=== PATIENT | male | born 1960 | race Caucasian/White ===

== ENCOUNTER 2017-04-28 19:10 | Emergency (ER) | payer MEDICARE, MEDICAID ==
[2017-04-28] MEDS ORDERED: Pantoprazole 40 MG Vial IVPUSH ONE (20:13)
[2017-04-28] MEDS ORDERED: Sodium Chloride 0.9% 1,000 ML IV ONE (20:13)
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
[2017-04-28 21:36] VITALS: BP 133/83
[2017-04-28] MEDS ORDERED: Atropine/Diphenoxylate 0.025-2.5 MG Tab PO ONE (22:08)
== END 2017-04-28 22:20 | disposition home or self-care (01) ==
LOC: DL.ED 19:10
DX: R10.13 Epigastric pain (principal); R19.7 Diarrhea, unspecified; Z88.8 Allergy status to other drugs, medicaments and biological substances; Z79.899 Other long term (current) drug therapy; Z87.891 Personal history of nicotine dependence
CPT/HCPCS: 36415; 74176; 80053; 83605; 84484; 85025; 87040; 96365; 96366; 96375; 99284; C9113; J7030

== ENCOUNTER 2017-05-01 18:36 | Emergency (ER) | payer MEDICARE, MEDICAID ==
[2017-05-01] MEDS ORDERED: Sodium Chloride 0.9% 1,000 ML IV ONE (20:16)
[2017-05-01] MEDS ORDERED: Morphine 2 MG/ML Syringe IVPUSH ONE (20:16)
[2017-05-01] MEDS ORDERED: Ondansetron 4 MG/2 ML SDV IV ONE (20:16)
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
[2017-05-01] MEDS ORDERED: GI Cocktail Oral Solution 30 ML PO ONE (20:24)
[2017-05-01] MEDS ORDERED: Acetaminophen 325 MG Tab PO ONE (22:37)
[2017-05-01 22:39] VITALS: BP 112/65
== END 2017-05-01 23:10 ==
LOC: DL.ED 18:36
DX: K44.9 Diaphragmatic hernia without obstruction or gangrene (principal); K21.0 Gastro-esophageal reflux disease with esophagitis; I10 Essential (primary) hypertension; Z88.8 Allergy status to other drugs, medicaments and biological substances; Z79.899 Other long term (current) drug therapy; Z87.891 Personal history of nicotine dependence
CPT/HCPCS: 36415; 80053; 83605; 85025; 96361; 96374; 96375; 99284; A9270; J2270; J2405; J7030; 99285

== ENCOUNTER 2017-06-06 15:01 | Emergency (ER) | payer MEDICARE, MEDICAID ==
[2017-06-06 15:31] VITALS: BP 151/120
== END 2017-06-06 15:50 | disposition left against medical advice (07) ==
LOC: DL.ED 15:01
DX: Z53.21 Procedure and treatment not carried out due to patient leaving prior to being seen by health care provider (principal)

== ENCOUNTER 2018-08-14 12:45 | Emergency (ER) | payer MEDICARE, MEDICAID ==
[2018-08-14 13:30] VITALS: BP 108/60
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
[2018-08-14] MEDS ORDERED: Ketorolac 30 MG/ML SDV IM ONE (14:02)
[2018-08-14] MEDS ORDERED: Acetaminophen/HYDROcodone 325-10 MG Tab PO ONE (14:03)
--- NOTE | 2018-08-14 15:30 | CR ---
Clinical history: 58-year-old male with clinical "constipation". Interpretation: Multiple phlebolith-like radiopacities in the pelvis. Some stool concentrated in the ascending right colon (remainder of the colon and rectum are clear). Note: A few small scattered air-fluid levels identified in the nondistended small intestine. Significance? No foreign body, abdominal soft tissue mass lesion, pathologic calcifications or signs of free subdiaphragmatic air. Lung bases are clear. CONCLUSION: Minimal stool concentrated (right colon). See comments above regarding small bowel abnormality.
[2018-08-14] MEDS ORDERED: Lactulose Soln 10 GM/15 ML 30 ML UD Cup PO ONE (15:56)
[2018-08-14] MEDS ORDERED: Bisacodyl 5 MG Tab PO ONE (15:56)
== END 2018-08-14 16:10 | disposition home or self-care (01) ==
LOC: DL.ED 12:45
DX: M51.36 Other intervertebral disc degeneration, lumbar region (principal); K59.09 Other constipation; I82.502 Chronic embolism and thrombosis of unspecified deep veins of left lower extremity; Z91.14 Patient's other noncompliance with medication regimen; I10 Essential (primary) hypertension; K21.9 Gastro-esophageal reflux disease without esophagitis; Z88.8 Allergy status to other drugs, medicaments and biological substances; Z79.899 Other long term (current) drug therapy; Z87.891 Personal history of nicotine dependence
CPT/HCPCS: 74021; 96372; 99283; A9270; J1885; J2360

== ENCOUNTER 2018-08-15 19:16 | Emergency (ER) | payer MEDICARE, MEDICAID ==
[2018-08-15 19:29] VITALS: BP 105/68; PULSE 76
[2018-08-15] MEDS ORDERED: Sodium Chloride 0.9% 1,000 ML IV SCH (20:30)
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
[2018-08-15 21:18] LABS: ANION GAP 15.9; CHLORIDE,CL 103 mmol/L (101-111); SODIUM,NA 134 mmol/L (135-145)
[2018-08-15] MEDS ORDERED: Iopamidol 612 MG/ML 100 ML Bottle IVPUSH ONE (21:20)
[2018-08-16] MEDS ORDERED: fentaNYL 100 MCG/2 ML SDV IVPUSH ONE (01:04)
== END 2018-08-16 01:17 ==
LOC: DL.ED 19:16
DX: M86.9 Osteomyelitis, unspecified (principal); I10 Essential (primary) hypertension; Z88.8 Allergy status to other drugs, medicaments and biological substances; Z79.899 Other long term (current) drug therapy; Z79.82 Long term (current) use of aspirin
CPT/HCPCS: 36415; 74177; 80053; 81001; 83605; 85025; 87040; 96365; 96366; 96375; 99285; J3010; J7030; Q9967; 87077; 87186; 99284

== ENCOUNTER 2018-08-24 09:40 | Inpatient (IN) | payer MEDICARE, MEDICAID ==
[2018-08-24] MEDS ORDERED: Magnesium Hydroxide 400 MG/5 ML Susp 30 ML Cup PO PRN (13:47)
[2018-08-24] MEDS ORDERED: Ondansetron 4 MG Tab.DIS PO PRN (13:47)
[2018-08-24] MEDS ORDERED: Polyethylene Glycol 3350 Powder 17 GM Packet PO PRN (13:47)
[2018-08-24] MEDS ORDERED: Docusate Sodium 100 MG Cap PO PRN (13:47)
[2018-08-24] MEDS ORDERED: ceFAZolin/Dextrose,Iso-Osmotic 2 GM/50 ML Duplex Bag IV SCH (14:00)
[2018-08-24] MEDS ORDERED: guaiFENesin 100 MG/5 ML Soln 5 ML UD Cup PO PRN (14:54)
[2018-08-24] MEDS: oxyCODONE 5 MG Tab PO PRN ×2 (15:08→21:04)
[2018-08-24] MEDS: ceFAZolin 2 GM in Premix Bag 1 BAG IV SCH ×2 (15:09→22:07)
[2018-08-24] MEDS: APIXABAN 5 MG PO SCH (16:46)
--- NOTE | 2018-08-24 20:49 | HP ---
CHIEF COMPLAINT: Continued back pain requiring physical therapy and occupational therapy and IV antibiotics for discitis, osteomyelitis of T12 and L1 vertebra. HISTORY OF PRESENTING ILLNESS: Mr. Devante Berkowitz is a 58-year-old male with a medical history significant for hypertension, hyperlipidemia, chronic plantar ulcer with neuropathy, gastroesophageal reflux disease, had protracted hospitalization. He has been sick for the last few months. He was recently admitted to the hospital with left shoulder septic arthritis and underwent debridement and synovectomy on June 28, 2018, and was discharged to [facility] on nafcillin on July 02. His antibiotics were switched to daptomycin on July 08, 2018, when he left the Swing Bed. During that admission, he had MRI scan of the right foot, which was negative for abscess or osteomyelitis. The patient finished his antibiotics on August 06, 2018. He then presented to [facility] with right-sided flank pain on August 16, 2018, with no associated fevers, chills, nausea, vomiting abdominal pain, or diarrhea. CT scan of the abdomen and pelvis done at that time showed evidence of T12 and L1 space narrowing concerning for diskitis, osteomyelitis and was later admitted to [facility]. The patient had an MRI scan of the thoracic spine, which showed evidence of T12-L1 diskitis and evidence of paraspinous soft tissue enhancement consistent with possible psoas muscle abscess. The patient's blood cultures grew methicillin-susceptible Staph aureus, 2/2. The patient was evaluated by Infectious Disease team and has suggested for continuation of IV antibiotics for a total of 8 weeks and he is currently on cefazolin and as he continued to have back pain, he will need physical therapy and occupational therapy, needing admission to Swing Bed. At this time, the patient complains of pain to the back. He grades the pain as 6 to 7/10 in intensity, aggravated on ambulation and movement, relieved partially with pain medication. Pain is throbbing type of pain, nonradiating, not associated with any nausea or vomiting. Denies any chest pain. No shortness of breath. No abdominal pain. The patient denied any history of chest pains on exertion. No history of dyspnea on exertion. No history of orthopnea or paroxysmal nocturnal dyspnea. The patient denied any history of hematemesis, hematochezia, or melenic stools. Normal bowel and bladder habits, otherwise. REVIEW OF SYSTEMS: A complete review of system including skin, ear, nose, and throat, cardiovascular system, respiratory system, gastrointestinal system, genitourinary system, hematology, oncology, neurology, allergy, immunology, constitutional, endocrine were all evaluated and were negative except for the above-said notes. PAST MEDICAL HISTORY: Significant for hypertension, hyperlipidemia, gastroesophageal reflux disease, history of obesity, plantar ulcer on the right foot healed, recent history of shoulder septic arthritis, on prolonged IV antibiotic regimen. PAST SURGICAL HISTORY: Significant for wound debridement and shoulder arthroplasty of the left shoulder, history of umbilical hernia repair, colonoscopy. FAMILY HISTORY: Significant for hypertension in his mother and cancer in 1 of his brothers. SOCIAL HISTORY: The patient had history of smoking tobacco in the past, but quit smoking back in 1999, history of occasional alcohol intake. ALLERGIES: The patient noted to have allergies to vancomycin and gabapentin. HOME MEDICATIONS: Include multivitamin tablet 1 tablet daily; calcium carbonate with vitamin D3, 1 tablet twice a day; Eliquis 5 mg twice a day; vitamin B12, 50 mcg daily; Senokot 2 tablets twice a day; Lyrica 300 mg twice a day; Protonix 40 mg daily; oxycodone 5 mg every 4 hours as needed for pain; lisinopril 40 mg daily; hydrochlorothiazide 12.5 mg daily; Ancef 2 g IV q.8 hourly; aspirin 81 mg daily; Norvasc 5 mg daily; acetaminophen 500 mg every 4 hours as needed for pain. PHYSICAL EXAMINATION: General: The patient is well oriented to time, place, and person. Follows commands spontaneously. Cardiovascular System: S1, S2 heard with normal intensity. No gallops. Respiratory System: Clear to auscultation bilaterally. No wheeze. No crepitations. Abdomen: Soft. Bowel sounds positive. Nontender. No rigidity. No guarding. No rebound tenderness. Extremities: No edema in bilateral lower extremities. Neurology: No gross focal neurological deficit. LABORATORY DATA: Labs as reviewed from [facility]; sodium 137, potassium 4.2, chloride 105, bicarb 23.8, creatinine 0.8, glucose 121, phosphorus 3.4, magnesium 1.5. WBC 5.4, hemoglobin 10.7, hematocrit 33.3, platelet count 314. ASSESSMENT: 1. Diskitis, osteomyelitis involving the T12-L1 vertebrae. 2. Bacteremia with methicillin-susceptible Staph aureus. 3. Hypertension. 4. Hyperlipidemia. 5. Gastroesophageal reflux disease. PLAN: 1. Diskitis and osteomyelitis. The patient is currently on IV antibiotics. He will need total of 8 weeks of IV antibiotics. He has completed 6 weeks of IV antibiotics. He will be followed by Infectious Disease team while in the Swing Bed. We will continue with IV Ancef for now. We will closely follow. 2. Pain. The patient continues to have pain. We will have him on opiate pain medications for good control of the pain. We will have Physical Therapy and Occupational Therapy evaluate and treat the patient. 3. Hypertension. The patient's blood pressure seems to be in acceptable range. The patient's blood pressure will be closely monitored. Continue with current antihypertensive medications. Avoid any hypotensive episodes. 4. Gastroesophageal reflux disease. Continue with proton pump inhibitor. 5. DVT prophylaxis. The patient had history of DVT and the patient is currently on Eliquis, continue the same. 6. Code status. The patient wants to be full code. 7. Reviewed the labs and medications. Reviewed the chart obtained from [facility]. MARTHA /[id number] JULIANNE
[2018-08-24] MEDS: Pregabalin 75 MG Cap PO SCH (21:01)
[2018-08-24] MEDS: Calcium Carbonate/Vitamin D3 1250 MG-200 Unit Tab PO SCH (21:01)
[2018-08-25] MEDS: oxyCODONE 5 MG Tab PO PRN ×4 (03:45→21:17)
[2018-08-25] MEDS: ceFAZolin 2 GM in Premix Bag 1 BAG IV SCH ×3 (05:35→22:08)
[2018-08-25] MEDS: Pantoprazole 40 MG Tab.CR PO SCH (06:08)
[2018-08-25 07:29] LABS: ANION GAP 15.3; CHLORIDE,CL 105 mmol/L (101-111); SODIUM,NA 137 mmol/L (135-145)
[2018-08-25] MEDS: Multivitamins, Therapeutic with Minerals Tab PO SCH (08:41)
[2018-08-25] MEDS: Pregabalin 75 MG Cap PO SCH ×2 (08:41→21:19)
[2018-08-25] MEDS: Calcium Carbonate/Vitamin D3 1250 MG-200 Unit Tab PO SCH ×2 (08:42→21:19)
[2018-08-25] MEDS: Cyanocobalamin (Vitamin B12) 100 MCG Tab PO SCH (08:43)
[2018-08-25] MEDS: amLODIPine 5 MG Tab PO SCH (08:43)
[2018-08-25] MEDS: Hydrochlorothiazide 25 MG Tab PO SCH (08:44)
[2018-08-25] MEDS: Lisinopril 20 MG Tab PO SCH (08:44)
[2018-08-25] MEDS: Aspirin 81 MG Tab.EC PO SCH (08:45)
[2018-08-25] MEDS: APIXABAN 5 MG PO SCH ×2 (08:47→15:41)
[2018-08-25] MEDS ORDERED: Non-Formulary Medication 1 Each PO SCH (09:00)
[2018-08-25] MEDS: Morphine 2 MG/ML Syringe IVPUSH PRN (12:31)
[2018-08-25] MEDS: Sodium Chloride 0.9% 10 ML Syringe FLUSH PRN ×2 (12:32→13:09)
[2018-08-26] MEDS: Pantoprazole 40 MG Tab.CR PO SCH (06:08)
[2018-08-26] MEDS: ceFAZolin 2 GM in Premix Bag 1 BAG IV SCH ×3 (06:08→22:55)
[2018-08-26] MEDS: oxyCODONE 5 MG Tab PO PRN ×4 (06:20→20:22)
[2018-08-26] MEDS: Cyanocobalamin (Vitamin B12) 100 MCG Tab PO SCH (08:23)
[2018-08-26] MEDS: Calcium Carbonate/Vitamin D3 1250 MG-200 Unit Tab PO SCH ×2 (08:24→22:55)
[2018-08-26] MEDS: Hydrochlorothiazide 25 MG Tab PO SCH (08:24)
[2018-08-26] MEDS: Multivitamins, Therapeutic with Minerals Tab PO SCH (08:24)
[2018-08-26] MEDS: Aspirin 81 MG Tab.EC PO SCH (08:25)
[2018-08-26] MEDS: amLODIPine 5 MG Tab PO SCH (08:25)
[2018-08-26] MEDS: Pregabalin 75 MG Cap PO SCH ×2 (08:26→22:55)
[2018-08-26] MEDS: Lisinopril 20 MG Tab PO SCH (08:34)
[2018-08-26] MEDS: APIXABAN 5 MG PO SCH ×2 (10:28→13:29)
[2018-08-26] MEDS: Morphine 2 MG/ML Syringe IVPUSH PRN (13:33)
[2018-08-27] MEDS: oxyCODONE 5 MG Tab PO PRN ×3 (04:16→21:14)
[2018-08-27] MEDS: ceFAZolin 2 GM in Premix Bag 1 BAG IV SCH ×3 (05:44→21:50)
[2018-08-27] MEDS: Pantoprazole 40 MG Tab.CR PO SCH (05:44)
[2018-08-27] MEDS: APIXABAN 5 MG PO SCH ×2 (08:10→13:31)
[2018-08-27] MEDS: Lisinopril 20 MG Tab PO SCH (08:13)
[2018-08-27] MEDS: Multivitamins, Therapeutic with Minerals Tab PO SCH (08:13)
[2018-08-27] MEDS: amLODIPine 5 MG Tab PO SCH (08:15)
[2018-08-27] MEDS: Calcium Carbonate/Vitamin D3 1250 MG-200 Unit Tab PO SCH ×2 (08:17→21:09)
[2018-08-27] MEDS: Pregabalin 75 MG Cap PO SCH ×2 (08:18→21:09)
[2018-08-27] MEDS: Aspirin 81 MG Tab.EC PO SCH (08:19)
[2018-08-27] MEDS: Cyanocobalamin (Vitamin B12) 100 MCG Tab PO SCH (08:19)
[2018-08-27] MEDS: Hydrochlorothiazide 25 MG Tab PO SCH (08:20)
[2018-08-27] MEDS: Sodium Chloride 0.9% 10 ML Syringe FLUSH PRN ×3 (13:29→21:50)
[2018-08-27] MEDS: Morphine 2 MG/ML Syringe IVPUSH PRN (14:02)
[2018-08-28] MEDS: oxyCODONE 5 MG Tab PO PRN ×4 (05:05→21:38)
[2018-08-28] MEDS: Pantoprazole 40 MG Tab.CR PO SCH (05:05)
[2018-08-28] MEDS: ceFAZolin 2 GM in Premix Bag 1 BAG IV SCH ×3 (05:30→21:29)
[2018-08-28] MEDS: Sodium Chloride 0.9% 10 ML Syringe FLUSH PRN ×4 (05:30→22:04)
[2018-08-28] MEDS: APIXABAN 5 MG PO SCH ×2 (09:06→14:07)
[2018-08-28] MEDS: Multivitamins, Therapeutic with Minerals Tab PO SCH (09:07)
[2018-08-28] MEDS: Pregabalin 75 MG Cap PO SCH ×2 (09:07→21:27)
[2018-08-28] MEDS: Aspirin 81 MG Tab.EC PO SCH (09:08)
[2018-08-28] MEDS: Cyanocobalamin (Vitamin B12) 100 MCG Tab PO SCH (09:08)
[2018-08-28] MEDS: amLODIPine 5 MG Tab PO SCH (09:15)
[2018-08-28] MEDS: Calcium Carbonate/Vitamin D3 1250 MG-200 Unit Tab PO SCH ×2 (09:15→21:27)
[2018-08-28] MEDS: Lisinopril 20 MG Tab PO SCH (09:16)
[2018-08-28] MEDS: Hydrochlorothiazide 25 MG Tab PO SCH (09:16)
[2018-08-28] MEDS: Morphine 2 MG/ML Syringe IVPUSH PRN (13:29)
[2018-08-29] MEDS: oxyCODONE 5 MG Tab PO PRN ×4 (03:06→21:12)
[2018-08-29] MEDS: Pantoprazole 40 MG Tab.CR PO SCH (05:27)
[2018-08-29] MEDS: ceFAZolin 2 GM in Premix Bag 1 BAG IV SCH ×3 (05:28→21:46)
[2018-08-29] MEDS: Sodium Chloride 0.9% 10 ML Syringe FLUSH PRN ×3 (05:28→21:45)
[2018-08-29] MEDS: Pregabalin 75 MG Cap PO SCH ×2 (08:49→21:12)
[2018-08-29] MEDS: Aspirin 81 MG Tab.EC PO SCH (08:49)
[2018-08-29] MEDS: Calcium Carbonate/Vitamin D3 1250 MG-200 Unit Tab PO SCH ×2 (08:50→21:12)
[2018-08-29] MEDS: Cyanocobalamin (Vitamin B12) 100 MCG Tab PO SCH (08:50)
[2018-08-29] MEDS: Hydrochlorothiazide 25 MG Tab PO SCH (08:51)
[2018-08-29] MEDS: Multivitamins, Therapeutic with Minerals Tab PO SCH (08:51)
[2018-08-29] MEDS: amLODIPine 5 MG Tab PO SCH (08:58)
[2018-08-29] MEDS: Lisinopril 20 MG Tab PO SCH (08:58)
[2018-08-29] MEDS: APIXABAN 5 MG PO SCH ×2 (08:59→13:05)
[2018-08-29] MEDS: Morphine 2 MG/ML Syringe IVPUSH PRN (13:41)
[2018-08-30] MEDS ORDERED: Pantoprazole 40 MG Tab.CR PO ONE (04:39)
[2018-08-30] MEDS ORDERED: oxyCODONE 5 MG Tab PO ONE (05:41)
[2018-08-30] MEDS: Pantoprazole 40 MG Tab.CR PO SCH (07:23)
[2018-08-30] MEDS: ceFAZolin 2 GM in Premix Bag 1 BAG IV SCH ×3 (07:23→21:44)
[2018-08-30] MEDS: Hydrochlorothiazide 25 MG Tab PO SCH (09:19)
[2018-08-30] MEDS: Multivitamins, Therapeutic with Minerals Tab PO SCH (09:20)
[2018-08-30] MEDS: Cyanocobalamin (Vitamin B12) 100 MCG Tab PO SCH (09:21)
[2018-08-30] MEDS: Aspirin 81 MG Tab.EC PO SCH (09:22)
[2018-08-30] MEDS: Pregabalin 75 MG Cap PO SCH ×2 (09:22→20:39)
[2018-08-30] MEDS: Lisinopril 20 MG Tab PO SCH (09:23)
[2018-08-30] MEDS: amLODIPine 5 MG Tab PO SCH (09:25)
[2018-08-30] MEDS: APIXABAN 5 MG PO SCH ×2 (09:26→13:20)
[2018-08-30] MEDS: Calcium Carbonate/Vitamin D3 1250 MG-200 Unit Tab PO SCH ×2 (09:26→20:39)
[2018-08-30] MEDS: oxyCODONE 5 MG Tab PO PRN ×3 (10:14→20:39)
[2018-08-30] MEDS: Sodium Chloride 0.9% 10 ML Syringe FLUSH PRN (21:42)
[2018-08-31] MEDS: oxyCODONE 5 MG Tab PO PRN ×5 (00:19→20:48)
[2018-08-31] MEDS: Sodium Chloride 0.9% 10 ML Syringe FLUSH PRN ×2 (05:31→15:52)
[2018-08-31] MEDS: ceFAZolin 2 GM in Premix Bag 1 BAG IV SCH ×3 (05:31→22:02)
[2018-08-31] MEDS: Pantoprazole 40 MG Tab.CR PO SCH (05:38)
[2018-08-31] MEDS: Morphine 2 MG/ML Syringe IVPUSH PRN (08:12)
[2018-08-31] MEDS: Pregabalin 75 MG Cap PO SCH ×2 (08:56→20:44)
[2018-08-31] MEDS: Cyanocobalamin (Vitamin B12) 100 MCG Tab PO SCH (08:57)
[2018-08-31] MEDS: Lisinopril 20 MG Tab PO SCH (08:58)
[2018-08-31] MEDS: amLODIPine 5 MG Tab PO SCH (08:59)
[2018-08-31] MEDS: Calcium Carbonate/Vitamin D3 1250 MG-200 Unit Tab PO SCH ×2 (08:59→20:44)
[2018-08-31] MEDS: Hydrochlorothiazide 25 MG Tab PO SCH (09:00)
[2018-08-31] MEDS: Aspirin 81 MG Tab.EC PO SCH (09:00)
[2018-08-31] MEDS: Multivitamins, Therapeutic with Minerals Tab PO SCH (09:01)
[2018-08-31] MEDS: APIXABAN 5 MG PO SCH ×2 (09:02→15:18)
[2018-09-01] MEDS: ceFAZolin 2 GM in Premix Bag 1 BAG IV SCH ×3 (05:52→22:06)
[2018-09-01] MEDS: Pantoprazole 40 MG Tab.CR PO SCH (05:57)
[2018-09-01] MEDS: oxyCODONE 5 MG Tab PO PRN ×4 (06:00→21:06)
[2018-09-01] MEDS: Pregabalin 75 MG Cap PO SCH ×2 (08:23→20:59)
[2018-09-01] MEDS: Cyanocobalamin (Vitamin B12) 100 MCG Tab PO SCH (08:23)
[2018-09-01] MEDS: Lisinopril 20 MG Tab PO SCH (08:23)
[2018-09-01] MEDS: Hydrochlorothiazide 25 MG Tab PO SCH (08:23)
[2018-09-01] MEDS: Calcium Carbonate/Vitamin D3 1250 MG-200 Unit Tab PO SCH ×2 (08:23→21:00)
[2018-09-01] MEDS: Multivitamins, Therapeutic with Minerals Tab PO SCH (08:23)
[2018-09-01] MEDS: Aspirin 81 MG Tab.EC PO SCH (08:23)
[2018-09-01] MEDS: APIXABAN 5 MG PO SCH ×2 (08:24→13:32)
[2018-09-01] MEDS: amLODIPine 5 MG Tab PO SCH (08:24)
[2018-09-01] MEDS: Sodium Chloride 0.9% 10 ML Syringe FLUSH PRN (14:05)
[2018-09-02] MEDS: oxyCODONE 5 MG Tab PO PRN ×4 (04:44→21:41)
[2018-09-02] MEDS: Pantoprazole 40 MG Tab.CR PO SCH (05:33)
[2018-09-02] MEDS: ceFAZolin 2 GM in Premix Bag 1 BAG IV SCH ×3 (05:34→21:42)
[2018-09-02] MEDS: APIXABAN 5 MG PO SCH ×2 (10:12→14:03)
[2018-09-02] MEDS: Hydrochlorothiazide 25 MG Tab PO SCH (10:17)
[2018-09-02] MEDS: Calcium Carbonate/Vitamin D3 1250 MG-200 Unit Tab PO SCH ×2 (10:17→21:37)
[2018-09-02] MEDS: Aspirin 81 MG Tab.EC PO SCH (10:17)
[2018-09-02] MEDS: Pregabalin 75 MG Cap PO SCH ×2 (10:18→21:37)
[2018-09-02] MEDS: amLODIPine 5 MG Tab PO SCH (10:19)
[2018-09-02] MEDS: Lisinopril 20 MG Tab PO SCH (10:20)
[2018-09-02] MEDS: Multivitamins, Therapeutic with Minerals Tab PO SCH (10:21)
[2018-09-02] MEDS: Cyanocobalamin (Vitamin B12) 100 MCG Tab PO SCH (10:21)
[2018-09-02] MEDS: Sodium Chloride 0.9% 10 ML Syringe FLUSH PRN (13:48)
[2018-09-03] MEDS: oxyCODONE 5 MG Tab PO PRN ×4 (04:45→23:59)
[2018-09-03] MEDS: Pantoprazole 40 MG Tab.CR PO SCH (05:40)
[2018-09-03] MEDS: ceFAZolin 2 GM in Premix Bag 1 BAG IV SCH ×3 (05:42→21:23)
[2018-09-03] MEDS: APIXABAN 5 MG PO SCH ×2 (09:23→13:21)
[2018-09-03] MEDS: Calcium Carbonate/Vitamin D3 1250 MG-200 Unit Tab PO SCH ×2 (09:24→21:23)
[2018-09-03] MEDS: Aspirin 81 MG Tab.EC PO SCH (09:24)
[2018-09-03] MEDS: Pregabalin 75 MG Cap PO SCH ×2 (09:24→21:23)
[2018-09-03] MEDS: Cyanocobalamin (Vitamin B12) 100 MCG Tab PO SCH (09:25)
[2018-09-03] MEDS: Multivitamins, Therapeutic with Minerals Tab PO SCH (09:33)
[2018-09-03] MEDS: Lisinopril 20 MG Tab PO SCH (12:17)
[2018-09-03] MEDS: amLODIPine 5 MG Tab PO SCH (12:17)
[2018-09-03] MEDS: Hydrochlorothiazide 25 MG Tab PO SCH (12:17)
[2018-09-03] MEDS: Morphine 2 MG/ML Syringe IVPUSH PRN ×2 (12:28→22:21)
[2018-09-03] MEDS: Sodium Chloride 0.9% 10 ML Syringe FLUSH PRN ×2 (12:36→13:15)
[2018-09-03] MEDS: Acetaminophen 500 MG Tab PO PRN (22:21)
[2018-09-04] MEDS: Acetaminophen 500 MG Tab PO PRN (04:47)
[2018-09-04] MEDS: oxyCODONE 5 MG Tab PO PRN ×4 (04:47→22:00)
[2018-09-04] MEDS: Morphine 2 MG/ML Syringe IVPUSH PRN ×5 (04:47→22:00)
[2018-09-04] MEDS: ceFAZolin 2 GM in Premix Bag 1 BAG IV SCH ×3 (05:00→23:26)
[2018-09-04] MEDS: Pantoprazole 40 MG Tab.CR PO SCH (05:00)
[2018-09-04] MEDS: APIXABAN 5 MG PO SCH ×2 (09:14→13:16)
[2018-09-04] MEDS: Aspirin 81 MG Tab.EC PO SCH (09:15)
[2018-09-04] MEDS: Calcium Carbonate/Vitamin D3 1250 MG-200 Unit Tab PO SCH ×2 (09:15→20:36)
[2018-09-04] MEDS: Multivitamins, Therapeutic with Minerals Tab PO SCH (09:22)
[2018-09-04] MEDS: Pregabalin 75 MG Cap PO SCH ×2 (09:22→20:36)
[2018-09-04] MEDS: Cyanocobalamin (Vitamin B12) 100 MCG Tab PO SCH (09:23)
[2018-09-04] MEDS: amLODIPine 5 MG Tab PO SCH (09:27)
[2018-09-04] MEDS: Hydrochlorothiazide 25 MG Tab PO SCH (09:28)
[2018-09-04] MEDS: Lisinopril 20 MG Tab PO SCH (09:29)
[2018-09-04] MEDS: Sodium Chloride 0.9% 10 ML Syringe FLUSH PRN ×3 (09:39→13:41)
--- NOTE | 2018-09-04 12:49 | PCM.PN ---
- General Info Date of Service: 09/04/18 Admission Dx/Problem (Free Text): Discitis, osteomyelitis of T12-L1 Subjective Update: Patient feels well. He said that his bed is more comfortable after placing an air mattress. Patient said that his back pain is improving with IV antibiotics. Is able to ambulate without problems. He denied any chest pain or shortness of breath, nausea or vomiting, change in bowel habits or urinary habits. He denied any new neurologic symptoms. Functional Status: Reports: Pain Controlled - Review of Systems General: Reports: No Symptoms HEENT: Reports: No Symptoms Pulmonary: Reports: No Symptoms Cardiovascular: Reports: No Symptoms Gastrointestinal: Reports: No Symptoms Genitourinary: Reports: No Symptoms Musculoskeletal: Reports: Back Pain (Improving) Skin: Reports: No Symptoms Neurological: Reports: No Symptoms Psychiatric: Reports: No Symptoms - Patient Data Vitals - Most Recent: Last Vital Signs Temp 36.8 C 09/04/18 08:00 Pulse 72 09/04/18 00:00 Resp 18 09/04/18 08:00 BP 100/66 09/04/18 09:29 Pulse Ox 94 L 09/04/18 08:00 Weight - Most Recent: 114.714 kg I&O - Last 24 Hours: Intake & Output 09/03/18 09/04/18 09/04/18 22:59 06:59 14:59 Intake Total 50 Balance 50 Med Orders - Current: Current Medications Acetaminophen (Tylenol Extra Strength) 500 mg PO Q4HR PRN PRN Reason: Pain (mild 1-3) Last Admin: 09/04/18 04:47 Dose: 500 mg Amlodipine Besylate (Norvasc) 5 mg PO DAILY [facility] Last Admin: 09/04/18 09:27 Dose: 5 mg Aspirin (Halfprin) 81 mg PO DAILY [facility] Last Admin: 09/04/18 09:15 Dose: 81 mg Calcium Carbonate (Calcium Carbonate/Vitamin D 1250 Mg-200 Unit) 1 tab PO BID [facility] Last Admin: 09/04/18 09:15 Dose: 1 tab Cyanocobalamin (Vitamin B12) 50 mcg PO DAILY [facility] Last Admin: 09/04/18 09:23 Dose: 50 mcg Docusate Sodium (Colace) 100 mg PO BID PRN PRN Reason: Constipation Hydrochlorothiazide (Hydrochlorothiazide) 12.5 mg PO DAILY [facility] Last Admin: 09/04/18 09:28 Dose: 12.5 mg Cefazolin Sodium/Dextrose 2 gm (/ Premix) 50 mls @ 100 mls/hr IV Q8HR [facility] Stop: 10/19/18 06:29 Last Admin: 09/04/18 05:00 Dose: 100 mls/hr Lisinopril (Prinivil) 40 mg PO DAILY [facility] Last Admin: 09/04/18 09:29 Dose: 40 mg Magnesium Hydroxide (Milk Of Magnesia) 30 ml PO Q12H PRN PRN Reason: Constipation Morphine Sulfate (Morphine) 2 mg IVPUSH Q2H PRN PRN Reason: Pain (severe 7-10) Last Admin: 09/04/18 09:40 Dose: 2 mg Multivitamins/Minerals (Vitamins And Minerals) 1 tab PO DAILY [facility] Last Admin: 09/04/18 09:22 Dose: 1 tab Apixaban [Eliquis] 5 Mg- Non-Formulary Medication 5 mg PO 0800,1400 [facility] Last Admin: 09/04/18 09:14 Dose: 5 mg Ondansetron HCl (Zofran Odt) 4 mg PO Q4H PRN PRN Reason: nausea, able to take PO Oxycodone HCl (Oxycodone) 5 mg PO Q4HR PRN PRN Reason: Pain (moderate 4-6) Last Admin: 09/04/18 09:20 Dose: 5 mg Pantoprazole Sodium (Protonix) 40 mg PO ACBRK [facility] Last Admin: 09/04/18 05:00 Dose: 40 mg Polyethylene Glycol (Miralax) 17 gm PO DAILY PRN PRN Reason: Constipation Pregabalin (Lyrica) 300 mg PO BID [facility] Last Admin: 09/04/18 09:22 Dose: 300 mg Senna/Docusate Sodium (Senna Plus) 2 tab PO BID [facility] Last Admin: 09/04/18 09:22 Dose: 2 tab Sodium Chloride (Saline Flush) 10 ml FLUSH ASDIRECTED PRN PRN Reason: Keep Vein Open Last Admin: 09/04/18 09:39 Dose: 10 ml Discontinued Medications Non-Formulary Medication (Nf Drug) each PO DAILY [facility] Oxycodone HCl (Oxycodone) 5 mg PO .STK-MED ONE Stop: 08/30/18 05:42 Pantoprazole Sodium (Protonix) 40 mg PO .STK-MED ONE Stop: 08/30/18 04:40 - Problem List Review Problem List Initiated/Reviewed/Updated: Yes - Plan Plan:: Mr. Devante Berkowitz is a 58-year-old male with past medical history significant for hypertension, hyperlipidemia, chronic plantar ulcer with neuropathy, GERD, recent admission for left shoulder septic arthritis status post IV antibiotics who later presented again to [facility] with back pain with MRI showing evidence of T12-L1 discitis and evidence of paraspinous soft tissue enhancement consistent with possible psoas muscle abscess, blood cultures positive for MSSA. His here for IV antibiotics and physical therapy. Discitis Continue current IV antibiotics Patient will follow up with ID Pain treatment as ordered Hypertension Continue current management GERD continue PPI DVT prophylaxis Hari
[2018-09-05] MEDS: Morphine 2 MG/ML Syringe IVPUSH PRN ×3 (03:12→22:49)
[2018-09-05] MEDS: Pantoprazole 40 MG Tab.CR PO SCH (05:52)
[2018-09-05] MEDS: oxyCODONE 5 MG Tab PO PRN ×3 (05:52→20:44)
[2018-09-05] MEDS: ceFAZolin 2 GM in Premix Bag 1 BAG IV SCH ×3 (05:54→22:23)
[2018-09-05] MEDS: Sodium Chloride 0.9% 10 ML Syringe FLUSH PRN ×3 (05:54→13:54)
[2018-09-05] MEDS: APIXABAN 5 MG PO SCH ×2 (08:29→13:08)
[2018-09-05] MEDS: Pregabalin 75 MG Cap PO SCH ×2 (08:30→20:45)
[2018-09-05] MEDS: Calcium Carbonate/Vitamin D3 1250 MG-200 Unit Tab PO SCH ×2 (08:30→20:43)
[2018-09-05] MEDS: Cyanocobalamin (Vitamin B12) 100 MCG Tab PO SCH (08:31)
[2018-09-05] MEDS: Aspirin 81 MG Tab.EC PO SCH (08:31)
[2018-09-05] MEDS: Multivitamins, Therapeutic with Minerals Tab PO SCH (08:31)
[2018-09-05] MEDS: Hydrochlorothiazide 25 MG Tab PO SCH (08:37)
[2018-09-05] MEDS: amLODIPine 5 MG Tab PO SCH (08:38)
[2018-09-05] MEDS: Lisinopril 20 MG Tab PO SCH (08:38)
[2018-09-06] MEDS: Pantoprazole 40 MG Tab.CR PO SCH (05:57)
[2018-09-06] MEDS: oxyCODONE 5 MG Tab PO PRN ×2 (05:57→22:54)
[2018-09-06] MEDS: ceFAZolin 2 GM in Premix Bag 1 BAG IV SCH ×3 (05:58→22:03)
[2018-09-06] MEDS: Pregabalin 75 MG Cap PO SCH ×2 (08:58→20:57)
[2018-09-06] MEDS: Calcium Carbonate/Vitamin D3 1250 MG-200 Unit Tab PO SCH ×2 (08:59→20:56)
[2018-09-06] MEDS: Multivitamins, Therapeutic with Minerals Tab PO SCH (08:59)
[2018-09-06] MEDS: Aspirin 81 MG Tab.EC PO SCH (09:00)
[2018-09-06] MEDS: Cyanocobalamin (Vitamin B12) 100 MCG Tab PO SCH (09:00)
[2018-09-06] MEDS: APIXABAN 5 MG PO SCH ×2 (09:00→12:59)
[2018-09-06] MEDS: Lisinopril 20 MG Tab PO SCH (09:06)
[2018-09-06] MEDS: Hydrochlorothiazide 25 MG Tab PO SCH (09:07)
[2018-09-06] MEDS: amLODIPine 5 MG Tab PO SCH (09:07)
[2018-09-06] MEDS: Morphine 2 MG/ML Syringe IVPUSH PRN (09:10)
[2018-09-06] MEDS: Sodium Chloride 0.9% 10 ML Syringe FLUSH PRN ×2 (09:10→13:40)
[2018-09-07] MEDS: Morphine 2 MG/ML Syringe IVPUSH PRN (00:21)
[2018-09-07] MEDS: oxyCODONE 5 MG Tab PO PRN (04:56)
[2018-09-07] MEDS: Pantoprazole 40 MG Tab.CR PO SCH (05:45)
[2018-09-07] MEDS: ceFAZolin 2 GM in Premix Bag 1 BAG IV SCH ×3 (05:46→22:16)
[2018-09-07] MEDS: APIXABAN 5 MG PO SCH ×2 (08:23→13:13)
[2018-09-07] MEDS: Pregabalin 75 MG Cap PO SCH ×2 (08:24→22:15)
[2018-09-07] MEDS: amLODIPine 5 MG Tab PO SCH (08:25)
[2018-09-07] MEDS: Hydrochlorothiazide 25 MG Tab PO SCH (08:25)
[2018-09-07] MEDS: Cyanocobalamin (Vitamin B12) 100 MCG Tab PO SCH (08:25)
[2018-09-07] MEDS: Lisinopril 20 MG Tab PO SCH (08:26)
[2018-09-07] MEDS: Calcium Carbonate/Vitamin D3 1250 MG-200 Unit Tab PO SCH ×2 (08:26→22:15)
[2018-09-07] MEDS: Aspirin 81 MG Tab.EC PO SCH (08:26)
[2018-09-07] MEDS: Multivitamins, Therapeutic with Minerals Tab PO SCH (08:26)
[2018-09-07] MEDS: Sodium Chloride 0.9% 10 ML Syringe FLUSH PRN (13:51)
[2018-09-08] MEDS: Morphine 2 MG/ML Syringe IVPUSH PRN (00:22)
[2018-09-08] MEDS: oxyCODONE 5 MG Tab PO PRN ×3 (05:39→22:19)
[2018-09-08] MEDS: ceFAZolin 2 GM in Premix Bag 1 BAG IV SCH ×3 (05:39→22:19)
[2018-09-08] MEDS: Pantoprazole 40 MG Tab.CR PO SCH (05:39)
[2018-09-08] MEDS: APIXABAN 5 MG PO SCH ×2 (09:12→13:01)
[2018-09-08] MEDS: Pregabalin 75 MG Cap PO SCH ×2 (09:12→22:18)
[2018-09-08] MEDS: Hydrochlorothiazide 25 MG Tab PO SCH (09:12)
[2018-09-08] MEDS: Lisinopril 20 MG Tab PO SCH (09:13)
[2018-09-08] MEDS: Cyanocobalamin (Vitamin B12) 100 MCG Tab PO SCH (09:14)
[2018-09-08] MEDS: Multivitamins, Therapeutic with Minerals Tab PO SCH (09:14)
[2018-09-08] MEDS: amLODIPine 5 MG Tab PO SCH (09:15)
[2018-09-08] MEDS: Calcium Carbonate/Vitamin D3 1250 MG-200 Unit Tab PO SCH ×2 (09:15→22:18)
[2018-09-08] MEDS: Aspirin 81 MG Tab.EC PO SCH (09:15)
--- NOTE | 2018-09-08 10:08 | PCM.PN ---
- General Info Date of Service: 09/08/18 Admission Dx/Problem (Free Text): Discitis, osteomyelitis of T12-L1 Subjective Update: Patient feels well. He continues to complain of back pain related to bed being uncomfortable. He is moving his bowels okay. No issues with urination. No issues with respiration. He denied any other complaints. - Review of Systems General: Reports: No Symptoms Pulmonary: Reports: No Symptoms Cardiovascular: Reports: No Symptoms Gastrointestinal: Reports: No Symptoms Genitourinary: Reports: No Symptoms Musculoskeletal: Reports: Back Pain - Patient Data Vitals - Most Recent: Last Vital Signs Temp 37.1 C 09/08/18 08:00 Pulse 66 09/08/18 08:00 Resp 18 09/08/18 08:00 BP 117/58 L 09/08/18 09:15 Pulse Ox 95 09/08/18 08:00 Weight - Most Recent: 114.714 kg I&O - Last 24 Hours: Intake & Output 09/07/18 09/08/18 09/08/18 22:59 06:59 14:59 Intake Total 50 103 Balance 50 103 Med Orders - Current: Current Medications Acetaminophen (Tylenol Extra Strength) 500 mg PO Q4HR PRN PRN Reason: Pain (mild 1-3) Last Admin: 09/04/18 04:47 Dose: 500 mg Amlodipine Besylate (Norvasc) 5 mg PO DAILY [facility] Last Admin: 09/08/18 09:15 Dose: 5 mg Aspirin (Halfprin) 81 mg PO DAILY [facility] Last Admin: 09/08/18 09:15 Dose: 81 mg Calcium Carbonate (Calcium Carbonate/Vitamin D 1250 Mg-200 Unit) 1 tab PO BID [facility] Last Admin: 09/08/18 09:15 Dose: 1 tab Cyanocobalamin (Vitamin B12) 50 mcg PO DAILY [facility] Last Admin: 09/08/18 09:14 Dose: 50 mcg Docusate Sodium (Colace) 100 mg PO BID PRN PRN Reason: Constipation Hydrochlorothiazide (Hydrochlorothiazide) 12.5 mg PO DAILY [facility] Last Admin: 09/08/18 09:12 Dose: 12.5 mg Cefazolin Sodium/Dextrose 2 gm (/ Premix) 50 mls @ 100 mls/hr IV Q8HR [facility] Stop: 10/19/18 06:29 Last Admin: 09/08/18 05:39 Dose: 100 mls/hr Lisinopril (Prinivil) 40 mg PO DAILY [facility] Last Admin: 09/08/18 09:13 Dose: 40 mg Magnesium Hydroxide (Milk Of Magnesia) 30 ml PO Q12H PRN PRN Reason: Constipation Morphine Sulfate (Morphine) 2 mg IVPUSH Q2H PRN PRN Reason: Pain (severe 7-10) Last Admin: 09/08/18 00:22 Dose: 2 mg Multivitamins/Minerals (Vitamins And Minerals) 1 tab PO DAILY [facility] Last Admin: 09/08/18 09:14 Dose: 1 tab Apixaban [Eliquis] 5 Mg- Non-Formulary Medication 5 mg PO 0800,1400 [facility] Last Admin: 09/08/18 09:12 Dose: 5 mg Ondansetron HCl (Zofran Odt) 4 mg PO Q4H PRN PRN Reason: nausea, able to take PO Oxycodone HCl (Oxycodone) 5 mg PO Q4HR PRN PRN Reason: Pain (moderate 4-6) Last Admin: 09/08/18 05:39 Dose: 5 mg Pantoprazole Sodium (Protonix) 40 mg PO ACBRK [facility] Last Admin: 09/08/18 05:39 Dose: 40 mg Polyethylene Glycol (Miralax) 17 gm PO DAILY PRN PRN Reason: Constipation Pregabalin (Lyrica) 300 mg PO BID [facility] Last Admin: 09/08/18 09:12 Dose: 300 mg Senna/Docusate Sodium (Senna Plus) 2 tab PO BID [facility] Last Admin: 09/08/18 09:13 Dose: 2 tab Sodium Chloride (Saline Flush) 10 ml FLUSH ASDIRECTED PRN PRN Reason: Keep Vein Open Last Admin: 09/07/18 13:51 Dose: 10 ml Discontinued Medications Non-Formulary Medication (Nf Drug) each PO DAILY [facility] Oxycodone HCl (Oxycodone) 5 mg PO .STK-MED ONE Stop: 08/30/18 05:42 Pantoprazole Sodium (Protonix) 40 mg PO .STK-MED ONE Stop: 08/30/18 04:40 - Exam General: Alert, Oriented Lungs: Clear to Auscultation, Normal Respiratory Effort Cardiovascular: Regular Rate, Regular Rhythm GI/Abdominal Exam: Normal Bowel Sounds, Soft, No Distention Skin: Warm, Dry, Intact Neurological: No New Focal Deficit Psy/Mental Status: Alert, Normal Affect, Normal Mood - Problem List Review Problem List Initiated/Reviewed/Updated: Yes - My Orders Last 24 Hours: My Active Orders 09/14/18 06:00 ALANINE AMINOTRANSFERASE,ALT [CHEM] Routine CBC WITH AUTO DIFF [HEME] Routine CREATININE W/GFR [CHEM] Routine CRP [C-REACTIVE PROTEIN] [CHEM] Routine ESR [SEDIMENTATION RATE MANUAL] [HEME] Routine - Plan Plan:: Mr. Devante Berkowitz is a 58-year-old male with past medical history significant for hypertension, hyperlipidemia, chronic plantar ulcer with neuropathy, GERD, recent admission for left shoulder septic arthritis status post IV antibiotics who later presented again to [facility] with back pain with MRI showing evidence of T12-L1 discitis and evidence of paraspinous soft tissue enhancement consistent with possible psoas muscle abscess, blood cultures positive for MSSA. His here for IV antibiotics and physical therapy. Discitis Continue current IV antibiotics Patient will follow up with ID Pain treatment as ordered Hypertension Continue current management GERD continue PPI DVT prophylaxis Hari
[2018-09-09] MEDS: Morphine 2 MG/ML Syringe IVPUSH PRN ×2 (00:22→22:59)
[2018-09-09] MEDS: ceFAZolin 2 GM in Premix Bag 1 BAG IV SCH ×3 (05:55→21:30)
[2018-09-09] MEDS: Pantoprazole 40 MG Tab.CR PO SCH (05:55)
[2018-09-09] MEDS: oxyCODONE 5 MG Tab PO PRN ×4 (06:00→21:02)
[2018-09-09] MEDS: Pregabalin 75 MG Cap PO SCH ×2 (08:46→21:01)
[2018-09-09] MEDS: Multivitamins, Therapeutic with Minerals Tab PO SCH (08:47)
[2018-09-09] MEDS: Calcium Carbonate/Vitamin D3 1250 MG-200 Unit Tab PO SCH ×2 (08:47→21:01)
[2018-09-09] MEDS: Hydrochlorothiazide 25 MG Tab PO SCH (08:48)
[2018-09-09] MEDS: Aspirin 81 MG Tab.EC PO SCH (08:48)
[2018-09-09] MEDS: amLODIPine 5 MG Tab PO SCH (08:49)
[2018-09-09] MEDS: Lisinopril 20 MG Tab PO SCH (08:49)
[2018-09-09] MEDS: Cyanocobalamin (Vitamin B12) 100 MCG Tab PO SCH (08:49)
[2018-09-09] MEDS: APIXABAN 5 MG PO SCH ×2 (08:50→13:43)
[2018-09-09] MEDS: Sodium Chloride 0.9% 10 ML Syringe FLUSH PRN (13:41)
[2018-09-09] MEDS: Zolpidem 5 MG Tab PO PRN (22:11)
[2018-09-10] MEDS: Pantoprazole 40 MG Tab.CR PO SCH (05:45)
[2018-09-10] MEDS: ceFAZolin 2 GM in Premix Bag 1 BAG IV SCH ×3 (05:45→21:40)
[2018-09-10] MEDS: Lisinopril 20 MG Tab PO SCH (09:37)
[2018-09-10] MEDS: Pregabalin 75 MG Cap PO SCH ×2 (09:38→21:03)
[2018-09-10] MEDS: APIXABAN 5 MG PO SCH ×2 (09:38→13:40)
[2018-09-10] MEDS: Calcium Carbonate/Vitamin D3 1250 MG-200 Unit Tab PO SCH ×2 (09:38→21:02)
[2018-09-10] MEDS: Cyanocobalamin (Vitamin B12) 100 MCG Tab PO SCH (09:39)
[2018-09-10] MEDS: amLODIPine 5 MG Tab PO SCH (09:39)
[2018-09-10] MEDS: Hydrochlorothiazide 25 MG Tab PO SCH (09:40)
[2018-09-10] MEDS: Multivitamins, Therapeutic with Minerals Tab PO SCH (09:40)
[2018-09-10] MEDS: Aspirin 81 MG Tab.EC PO SCH (09:40)
[2018-09-10] MEDS: Sodium Chloride 0.9% 10 ML Syringe FLUSH PRN (13:04)
[2018-09-10] MEDS: oxyCODONE 5 MG Tab PO PRN (21:06)
[2018-09-10] MEDS: Morphine 2 MG/ML Syringe IVPUSH PRN (22:03)
[2018-09-11] MEDS: Zolpidem 5 MG Tab PO PRN (00:42)
[2018-09-11] MEDS: Acetaminophen 500 MG Tab PO PRN (00:42)
[2018-09-11] MEDS: oxyCODONE 5 MG Tab PO PRN (02:09)
[2018-09-11] MEDS: Morphine 2 MG/ML Syringe IVPUSH PRN (03:39)
[2018-09-11] MEDS: Pantoprazole 40 MG Tab.CR PO SCH (05:46)
[2018-09-11] MEDS: ceFAZolin 2 GM in Premix Bag 1 BAG IV SCH ×3 (05:47→21:23)
[2018-09-11] MEDS: APIXABAN 5 MG PO SCH ×2 (09:00→13:27)
[2018-09-11] MEDS: Lisinopril 20 MG Tab PO SCH (09:00)
[2018-09-11] MEDS: Pregabalin 75 MG Cap PO SCH ×2 (09:00→21:23)
[2018-09-11] MEDS: Aspirin 81 MG Tab.EC PO SCH (09:02)
[2018-09-11] MEDS: Multivitamins, Therapeutic with Minerals Tab PO SCH (09:02)
[2018-09-11] MEDS: Calcium Carbonate/Vitamin D3 1250 MG-200 Unit Tab PO SCH ×2 (09:02→21:23)
[2018-09-11] MEDS: Hydrochlorothiazide 25 MG Tab PO SCH (09:02)
[2018-09-11] MEDS: Cyanocobalamin (Vitamin B12) 100 MCG Tab PO SCH (09:02)
[2018-09-11] MEDS: amLODIPine 5 MG Tab PO SCH (09:04)
[2018-09-12] MEDS: oxyCODONE 5 MG Tab PO PRN ×4 (01:18→21:49)
[2018-09-12] MEDS: Pantoprazole 40 MG Tab.CR PO SCH (05:42)
[2018-09-12] MEDS: ceFAZolin 2 GM in Premix Bag 1 BAG IV SCH ×3 (05:43→21:48)
[2018-09-12] MEDS: Pregabalin 75 MG Cap PO SCH ×2 (08:31→21:47)
[2018-09-12] MEDS: Calcium Carbonate/Vitamin D3 1250 MG-200 Unit Tab PO SCH ×2 (08:31→21:48)
[2018-09-12] MEDS: Hydrochlorothiazide 25 MG Tab PO SCH (08:32)
[2018-09-12] MEDS: amLODIPine 5 MG Tab PO SCH (08:32)
[2018-09-12] MEDS: Multivitamins, Therapeutic with Minerals Tab PO SCH (08:32)
[2018-09-12] MEDS: Lisinopril 20 MG Tab PO SCH (08:33)
[2018-09-12] MEDS: Cyanocobalamin (Vitamin B12) 100 MCG Tab PO SCH (08:33)
[2018-09-12] MEDS: Aspirin 81 MG Tab.EC PO SCH (08:34)
[2018-09-12] MEDS: APIXABAN 5 MG PO SCH ×2 (08:34→13:10)
[2018-09-12] MEDS: Sodium Chloride 0.9% 10 ML Syringe FLUSH PRN (13:04)
[2018-09-12] MEDS: Morphine 2 MG/ML Syringe IVPUSH PRN (23:33)
[2018-09-12] MEDS: Zolpidem 5 MG Tab PO PRN (23:33)
[2018-09-13] MEDS: ceFAZolin 2 GM in Premix Bag 1 BAG IV SCH ×3 (05:26→21:55)
[2018-09-13] MEDS: Pantoprazole 40 MG Tab.CR PO SCH (05:27)
[2018-09-13] MEDS: Morphine 2 MG/ML Syringe IVPUSH PRN (06:19)
[2018-09-13] MEDS: amLODIPine 5 MG Tab PO SCH (08:30)
[2018-09-13] MEDS: APIXABAN 5 MG PO SCH ×2 (08:30→13:34)
[2018-09-13] MEDS: oxyCODONE 5 MG Tab PO PRN ×3 (08:31→22:06)
[2018-09-13] MEDS: Cyanocobalamin (Vitamin B12) 100 MCG Tab PO SCH (08:32)
[2018-09-13] MEDS: Pregabalin 75 MG Cap PO SCH ×2 (08:32→22:05)
[2018-09-13] MEDS: Lisinopril 20 MG Tab PO SCH (08:32)
[2018-09-13] MEDS: Aspirin 81 MG Tab.EC PO SCH (08:33)
[2018-09-13] MEDS: Hydrochlorothiazide 25 MG Tab PO SCH (08:33)
[2018-09-13] MEDS: Calcium Carbonate/Vitamin D3 1250 MG-200 Unit Tab PO SCH ×2 (08:33→22:05)
[2018-09-13] MEDS: Multivitamins, Therapeutic with Minerals Tab PO SCH (08:33)
[2018-09-13] MEDS: Sodium Chloride 0.9% 10 ML Syringe FLUSH PRN ×2 (13:12→21:54)
[2018-09-14] MEDS: oxyCODONE 5 MG Tab PO PRN ×5 (04:07→23:45)
[2018-09-14] MEDS: Sodium Chloride 0.9% 10 ML Syringe FLUSH PRN ×2 (05:39→15:25)
[2018-09-14] MEDS: ceFAZolin 2 GM in Premix Bag 1 BAG IV SCH ×2 (05:41→14:22)
[2018-09-14] MEDS: Pantoprazole 40 MG Tab.CR PO SCH (05:44)
[2018-09-14] MEDS: Morphine 2 MG/ML Syringe IVPUSH PRN (06:14)
[2018-09-14 07:21] LABS: ANION GAP 13.2; CHLORIDE,CL 108 mmol/L (101-111); SODIUM,NA 137 mmol/L (135-145)
[2018-09-14] MEDS: Cyanocobalamin (Vitamin B12) 100 MCG Tab PO SCH (08:07)
[2018-09-14] MEDS: Aspirin 81 MG Tab.EC PO SCH (08:07)
[2018-09-14] MEDS: amLODIPine 5 MG Tab PO SCH (08:07)
[2018-09-14] MEDS: Multivitamins, Therapeutic with Minerals Tab PO SCH (08:07)
[2018-09-14] MEDS: Pregabalin 75 MG Cap PO SCH ×2 (08:07→20:41)
[2018-09-14] MEDS: Calcium Carbonate/Vitamin D3 1250 MG-200 Unit Tab PO SCH ×2 (08:08→20:41)
[2018-09-14] MEDS: APIXABAN 5 MG PO SCH ×2 (08:08→14:30)
[2018-09-14] MEDS: Lisinopril 20 MG Tab PO SCH (08:08)
[2018-09-14] MEDS: Hydrochlorothiazide 25 MG Tab PO SCH (08:08)
[2018-09-14] MEDS: NAFCILLIN IV SCH (15:25)
[2018-09-14] MEDS: SODIUM CHLORIDE 0.9% IV SCH (15:25)
--- NOTE | 2018-09-14 17:35 | PCM.PN ---
- General Info Date of Service: 09/14/18 Admission Dx/Problem (Free Text): Discitis, osteomyelitis of T12-L1 Subjective Update: Patient feels well. He continues to complain of back pain. mostly uncomfortable during the night in bed. no cp, no spb No issues with urination. had visit with ID today Functional Status: Reports: Pain Controlled, Tolerating Diet - Review of Systems General: Denies: Fever Pulmonary: Denies: Shortness of Breath Cardiovascular: Denies: Chest Pain Gastrointestinal: Denies: Abdominal Pain - Patient Data Vitals - Most Recent: Last Vital Signs Temp 36.4 C 09/14/18 08:26 Pulse 78 09/13/18 22:14 Resp 20 09/14/18 08:26 BP 127/69 09/14/18 08:26 Pulse Ox 96 09/14/18 08:26 Weight - Most Recent: 115.439 kg I&O - Last 24 Hours: Intake & Output 09/14/18 09/14/18 09/14/18 06:59 14:59 22:59 Intake Total 405 780 Balance 405 780 Lab Results Last 24 Hours: Laboratory Results - last 24 hr 09/14/18 09/14/18 09/14/18 Range/Units 06:26 06:26 06:26 WBC 4.2 L (5.0-10.0) 10^3/uL RBC 3.78 L (4.6-6.2) 10^6/uL Hgb 11.1 L (14.0-18.0) g/dL Hct 33.5 L (40.0-54.0) % MCV 88.6 (80-100) fL MCH 29.4 (27.0-34.0) pg MCHC 33.1 (33.0-35.0) g/dL Plt Count 145 L (150-450) 10^3/uL Neut % (Auto) 36.8 L (42.2-75.2) % Lymph % (Auto) 44.2 (20.5-50.1) % Hoke % (Auto) 13.7 H (2-8) % Eos % (Auto) 4.3 H (1.0-3.0) % Baso % (Auto) 1.0 (0.0-1.0) % ESR 11 (0-15) mm/hr Sodium (135-145) mmol/L Potassium (3.6-5.0) mmol/L Chloride (101-111) mmol/L Carbon Dioxide (21.0-31.0) mmol/L Anion Gap BUN (7-18) mg/dL Creatinine TNP Est Cr Clr Drug Dosing TNP Estimated GFR (MDRD) TNP Glucose (74-105) mg/dL Calcium (8.4-10.2) mg/dl ALT 5 L (10-60) IU/L C-Reactive Protein 1.0 (0.0-1.3) mg/dL 09/14/18 Range/Units 06:26 WBC (5.0-10.0) 10^3/uL RBC (4.6-6.2) 10^6/uL Hgb (14.0-18.0) g/dL Hct (40.0-54.0) % MCV (80-100) fL MCH (27.0-34.0) pg MCHC (33.0-35.0) g/dL Plt Count (150-450) 10^3/uL Neut % (Auto) (42.2-75.2) % Lymph % (Auto) (20.5-50.1) % Hoke % (Auto) (2-8) % Eos % (Auto) (1.0-3.0) % Baso % (Auto) (0.0-1.0) % ESR (0-15) mm/hr Sodium 137 (135-145) mmol/L Potassium 4.2 (3.6-5.0) mmol/L Chloride 108 (101-111) mmol/L Carbon Dioxide 20.0 L (21.0-31.0) mmol/L Anion Gap 13.2 BUN 24 H (7-18) mg/dL Creatinine 0.7 Est Cr Clr Drug Dosing 130.48 Estimated GFR (MDRD) > 60 Glucose 96 (74-105) mg/dL Calcium 8.7 (8.4-10.2) mg/dl ALT (10-60) IU/L C-Reactive Protein (0.0-1.3) mg/dL Med Orders - Current: Current Medications Acetaminophen (Tylenol Extra Strength) 500 mg PO Q4HR PRN PRN Reason: Pain (mild 1-3) Last Admin: 09/11/18 00:42 Dose: 500 mg Amlodipine Besylate (Norvasc) 5 mg PO DAILY [facility] Last Admin: 09/14/18 08:07 Dose: 5 mg Aspirin (Halfprin) 81 mg PO DAILY [facility] Last Admin: 09/14/18 08:07 Dose: 81 mg Calcium Carbonate (Calcium Carbonate/Vitamin D 1250 Mg-200 Unit) 1 tab PO BID [facility] Last Admin: 09/14/18 08:08 Dose: 1 tab Cyanocobalamin (Vitamin B12) 50 mcg PO DAILY [facility] Last Admin: 09/14/18 08:07 Dose: 50 mcg Docusate Sodium (Colace) 100 mg PO BID PRN PRN Reason: Constipation Hydrochlorothiazide (Hydrochlorothiazide) 12.5 mg PO DAILY [facility] Last Admin: 09/14/18 08:08 Dose: 12.5 mg Nafcillin Sodium 12 gm/ Sodium (Chloride) 250 mls @ 10.417 mls/hr IV Q24H [facility] Stop: 10/12/18 14:59 Last Admin: 09/14/18 15:25 Dose: 10.417 mls/hr Lisinopril (Prinivil) 40 mg PO DAILY [facility] Last Admin: 09/14/18 08:08 Dose: 40 mg Magnesium Hydroxide (Milk Of Magnesia) 30 ml PO Q12H PRN PRN Reason: Constipation Morphine Sulfate (Morphine) 2 mg IVPUSH Q2H PRN PRN Reason: Pain (severe 7-10) Last Admin: 09/14/18 06:14 Dose: 2 mg Multivitamins/Minerals (Vitamins And Minerals) 1 tab PO DAILY [facility] Last Admin: 09/14/18 08:07 Dose: 1 tab Apixaban [Eliquis] 5 Mg- Non-Formulary Medication 5 mg PO 0800,1400 [facility] Last Admin: 09/14/18 14:30 Dose: 5 mg Ondansetron HCl (Zofran Odt) 4 mg PO Q4H PRN PRN Reason: nausea, able to take PO Oxycodone HCl (Oxycodone) 5 mg PO Q4HR PRN PRN Reason: Pain (moderate 4-6) Last Admin: 09/14/18 14:29 Dose: 5 mg Pantoprazole Sodium (Protonix) 40 mg PO ACBRK [facility] Last Admin: 09/14/18 05:44 Dose: 40 mg Polyethylene Glycol (Miralax) 17 gm PO DAILY PRN PRN Reason: Constipation Pregabalin (Lyrica) 300 mg PO BID [facility] Last Admin: 09/14/18 08:07 Dose: 300 mg Senna/Docusate Sodium (Senna Plus) 2 tab PO BID [facility] Last Admin: 09/14/18 08:07 Dose: 2 tab Sodium Chloride (Saline Flush) 10 ml FLUSH ASDIRECTED PRN PRN Reason: Keep Vein Open Last Admin: 09/14/18 15:25 Dose: 10 ml Zolpidem Tartrate (Ambien) 5 mg PO BEDTIME PRN PRN Reason: Insomnia Last Admin: 09/12/18 23:33 Dose: 5 mg Discontinued Medications Cefazolin Sodium/Dextrose 2 gm (/ Premix) 50 mls @ 100 mls/hr IV Q8HR [facility] Stop: 10/12/18 14:01 Last Admin: 09/14/18 14:22 Dose: Not Given Non-Formulary Medication (Nf Drug) each PO DAILY [facility] Oxycodone HCl (Oxycodone) 5 mg PO .STK-MED ONE Stop: 08/30/18 05:42 Pantoprazole Sodium (Protonix) 40 mg PO .STK-MED ONE Stop: 08/30/18 04:40 - Exam Quality Assessment: Supplemental Oxygen General: Alert, Oriented Neck: Supple Lungs: Clear to Auscultation, Normal Respiratory Effort Cardiovascular: Regular Rate, Regular Rhythm GI/Abdominal Exam: Normal Bowel Sounds, Soft, Other (obese) Extremities: No Pedal Edema - Problem List & Annotations (1) Osteomyelitis SNOMED Code(s): 35385617 Code(s): M86.9 - OSTEOMYELITIS, UNSPECIFIED Status: Acute Current Visit: No Qualifiers: Osteomyelitis type: unspecified type Osteomyelitis location: other site Qualified Code(s): M86.9 - Osteomyelitis, unspecified - Problem List Review Problem List Initiated/Reviewed/Updated: Yes - My Orders Last 24 Hours: My Active Orders 09/14/18 15:00 Nafcillin 12 gm Sodium Chloride 0.9% [Normal Saline] 250 ml IV Q24H 09/21/18 HEPATIC FUNCTION PANEL,HFP [CHEM] Routine 09/21/18 05:11 CRP [C-REACTIVE PROTEIN] [CHEM] AM SEDIMENTATION RATE MANUAL [HEME] AM 09/21/18 05:15 BASIC METABOLIC PANEL,BMP [CHEM] AM CBC WITH AUTO DIFF [HEME] AM - Plan Plan:: Mr. Devante Berkowitz is a 58-year-old male with past medical history significant for hypertension, hyperlipidemia, chronic plantar ulcer with neuropathy, GERD, recent admission for left shoulder septic arthritis status post IV antibiotics who later presented again to [facility] with back pain with MRI showing evidence of T12-L1 discitis and evidence of paraspinous soft tissue enhancement consistent with possible psoas muscle abscess, blood cultures positive for MSSA. His here for IV antibiotics and physical therapy. Discitis Patient is follow up by ID recommendation was to swith cefazolin to nafcilin reeat labs and f/up in 1 week Pain treatment as ordered Hypertension controlled treat with norvasc, lisinopril, hctz GERD continue PPI DVT prophylaxis with h/o DVT Eliquis
[2018-09-15] MEDS: Pantoprazole 40 MG Tab.CR PO SCH (05:47)
[2018-09-15] MEDS: oxyCODONE 5 MG Tab PO PRN ×5 (06:19→22:27)
[2018-09-15] MEDS: APIXABAN 5 MG PO SCH ×2 (09:15→14:31)
[2018-09-15] MEDS: amLODIPine 5 MG Tab PO SCH (09:16)
[2018-09-15] MEDS: Aspirin 81 MG Tab.EC PO SCH (09:16)
[2018-09-15] MEDS: Lisinopril 20 MG Tab PO SCH (09:16)
[2018-09-15] MEDS: Pregabalin 75 MG Cap PO SCH ×2 (09:16→22:23)
[2018-09-15] MEDS: Hydrochlorothiazide 25 MG Tab PO SCH (09:17)
[2018-09-15] MEDS: Cyanocobalamin (Vitamin B12) 100 MCG Tab PO SCH (09:17)
[2018-09-15] MEDS: Calcium Carbonate/Vitamin D3 1250 MG-200 Unit Tab PO SCH ×2 (09:17→22:23)
[2018-09-15] MEDS: Multivitamins, Therapeutic with Minerals Tab PO SCH (09:17)
[2018-09-15] MEDS: NAFCILLIN IV SCH (15:07)
[2018-09-15] MEDS: SODIUM CHLORIDE 0.9% IV SCH (15:07)
[2018-09-16] MEDS: oxyCODONE 5 MG Tab PO PRN ×5 (02:22→20:44)
[2018-09-16] MEDS ORDERED: Furosemide 20 MG Tab PO ONE (06:27)
[2018-09-16] MEDS: Pantoprazole 40 MG Tab.CR PO SCH (06:40)
[2018-09-16] MEDS: Aspirin 81 MG Tab.EC PO SCH (09:21)
[2018-09-16] MEDS: Pregabalin 75 MG Cap PO SCH ×2 (09:21→20:44)
[2018-09-16] MEDS: Multivitamins, Therapeutic with Minerals Tab PO SCH (09:22)
[2018-09-16] MEDS: Cyanocobalamin (Vitamin B12) 100 MCG Tab PO SCH (09:22)
[2018-09-16] MEDS: Hydrochlorothiazide 25 MG Tab PO SCH (09:22)
[2018-09-16] MEDS: Lisinopril 20 MG Tab PO SCH (09:23)
[2018-09-16] MEDS: amLODIPine 5 MG Tab PO SCH (09:23)
[2018-09-16] MEDS: Calcium Carbonate/Vitamin D3 1250 MG-200 Unit Tab PO SCH ×2 (09:23→20:46)
[2018-09-16] MEDS: APIXABAN 5 MG PO SCH ×2 (09:25→15:10)
[2018-09-16] MEDS ORDERED: Furosemide 20 MG/2 ML VIAL IVPUSH ONE (15:32)
[2018-09-16] MEDS: NAFCILLIN IV SCH (15:46)
[2018-09-16] MEDS: SODIUM CHLORIDE 0.9% IV SCH (15:46)
[2018-09-17] MEDS: Zolpidem 5 MG Tab PO PRN (01:04)
[2018-09-17] MEDS: oxyCODONE 5 MG Tab PO PRN ×6 (01:04→23:01)
[2018-09-17] MEDS: Pantoprazole 40 MG Tab.CR PO SCH (05:18)
[2018-09-17] MEDS: Pregabalin 75 MG Cap PO SCH ×2 (09:41→21:27)
[2018-09-17] MEDS: Hydrochlorothiazide 25 MG Tab PO SCH (09:42)
[2018-09-17] MEDS: Cyanocobalamin (Vitamin B12) 100 MCG Tab PO SCH (09:42)
[2018-09-17] MEDS: Aspirin 81 MG Tab.EC PO SCH (09:42)
[2018-09-17] MEDS: APIXABAN 5 MG PO SCH ×2 (09:43→14:53)
[2018-09-17] MEDS: Lisinopril 20 MG Tab PO SCH (09:43)
[2018-09-17] MEDS: Calcium Carbonate/Vitamin D3 1250 MG-200 Unit Tab PO SCH ×2 (09:50→21:28)
[2018-09-17] MEDS: Multivitamins, Therapeutic with Minerals Tab PO SCH (09:50)
[2018-09-17] MEDS: NAFCILLIN IV SCH ×2 (14:42)
[2018-09-17] MEDS: DEXTROSE 5% IV SCH ×2 (14:42)
[2018-09-17] MEDS: WATER IV SCH ×2 (14:42)
--- NOTE | 2018-09-17 14:58 | PN ---
DATE: 09/16/2018 SUBJECTIVE: Mr. Berkowitz is a 58-year-old gentleman who is a swing bed patient. He is being treated with long-term IV antibiotics following diagnosis of septic arthritis at the T11-L1 level. Nursing staff asked me to look at him today because of edema to the upper extremities. Mr. Berkowitz feels it is worse. On exam, it is difficult for him to completely close his hands and his fingers because of the increased edema. The edema really does not extend up the arms, but is localized to the hands and somewhat to the feet as well. We reviewed this problem. Dr. Pozo had actually given him a dose of Lasix 20 mg by mouth this morning. I reviewed his medications and we made a number of changes. 1. He was given an additional dose of Lasix 20 mg IV x1 dose. 2. He is on hydrochlorothiazide as one of his chronic medications. He has been on 12.5 mg at home and this was increased today to 25 mg for diuretic effect. 3. He was noted to be on amlodipine and he is on amlodipine and this was discontinued as amlodipine at times can contribute also to edema. 4. We reviewed his IV antibiotics. He is receiving nafcillin and it is mixed in normal saline. I discussed this with the pharmacist and she switched this to D5 solution. She later called me and stated that after doing some research, it appears that nafcillin itself also has a significant sodium content. We will see how he does with these changes, and if the swelling continues to be a problem, the [facility] hospitalist will contact Dr. Weeks to discuss the sodium in the nafcillin. 5. We will continue to monitor his intake and output. Mr. Berkowitz was satisfied with this plan. We would like him to not void into the toilet and see if we can do a better job of measuring his output, but he is independent in his room and has not been collecting the urine. On the later overnight shift, he did put out 800 mL, so he does appear to be diuresing in response to the Lasix he received. The edema is probably multifactorial in origin. This sodium chloride solution plus the additional sodium in the nafcillin obviously is an issue. He also may have received additional fluids during his critical illness with the spinal sepsis. We will continue to monitor the edema and make adjustments as needed. The issue was discussed with the [facility] hospitalist. MODL /[id number] JULIANNE
[2018-09-17 16:53] LABS: ANION GAP 15.3; CHLORIDE,CL 100 mmol/L (101-111); SODIUM,NA 136 mmol/L (135-145)
[2018-09-18] MEDS: oxyCODONE 5 MG Tab PO PRN ×5 (04:32→21:47)
[2018-09-18] MEDS: Pantoprazole 40 MG Tab.CR PO SCH (06:12)
[2018-09-18] MEDS: Pregabalin 75 MG Cap PO SCH ×2 (08:22→20:31)
[2018-09-18] MEDS: Hydrochlorothiazide 25 MG Tab PO SCH (08:22)
[2018-09-18] MEDS: Lisinopril 20 MG Tab PO SCH (08:23)
[2018-09-18] MEDS: Calcium Carbonate/Vitamin D3 1250 MG-200 Unit Tab PO SCH ×2 (08:23→20:34)
[2018-09-18] MEDS: Cyanocobalamin (Vitamin B12) 100 MCG Tab PO SCH (08:23)
[2018-09-18] MEDS: Multivitamins, Therapeutic with Minerals Tab PO SCH (08:25)
[2018-09-18] MEDS: Aspirin 81 MG Tab.EC PO SCH (08:25)
[2018-09-18] MEDS: APIXABAN 5 MG PO SCH ×2 (08:26→13:19)
[2018-09-18] MEDS ORDERED: Menthol/Methyl Salicylate 85 GM Tube TOP PRN (13:33)
[2018-09-18] MEDS: NAFCILLIN IV SCH ×2 (15:15)
[2018-09-18] MEDS: WATER IV SCH ×2 (15:15)
[2018-09-18] MEDS: DEXTROSE 5% IV SCH ×2 (15:15)
[2018-09-19] MEDS: oxyCODONE 5 MG Tab PO PRN ×5 (01:56→22:17)
[2018-09-19] MEDS: Pantoprazole 40 MG Tab.CR PO SCH (06:29)
[2018-09-19] MEDS: Hydrochlorothiazide 25 MG Tab PO SCH (08:39)
[2018-09-19] MEDS: APIXABAN 5 MG PO SCH ×2 (08:39→13:59)
[2018-09-19] MEDS: Cyanocobalamin (Vitamin B12) 100 MCG Tab PO SCH (08:40)
[2018-09-19] MEDS: Lisinopril 20 MG Tab PO SCH (08:41)
[2018-09-19] MEDS: Aspirin 81 MG Tab.EC PO SCH (08:41)
[2018-09-19] MEDS: Pregabalin 75 MG Cap PO SCH ×2 (08:42→20:56)
[2018-09-19] MEDS: Multivitamins, Therapeutic with Minerals Tab PO SCH (08:43)
[2018-09-19] MEDS: Calcium Carbonate/Vitamin D3 1250 MG-200 Unit Tab PO SCH ×3 (09:25→20:57)
[2018-09-19] MEDS: NAFCILLIN IV SCH ×2 (15:19)
[2018-09-19] MEDS: DEXTROSE 5% IV SCH ×2 (15:19)
[2018-09-19] MEDS: WATER IV SCH ×2 (15:19)
[2018-09-20] MEDS: oxyCODONE 5 MG Tab PO PRN ×5 (02:17→22:29)
[2018-09-20] MEDS: Pantoprazole 40 MG Tab.CR PO SCH (05:52)
[2018-09-20] MEDS: Aspirin 81 MG Tab.EC PO SCH (08:59)
[2018-09-20] MEDS: Pregabalin 75 MG Cap PO SCH ×2 (08:59→20:33)
[2018-09-20] MEDS: Cyanocobalamin (Vitamin B12) 100 MCG Tab PO SCH (08:59)
[2018-09-20] MEDS: Multivitamins, Therapeutic with Minerals Tab PO SCH (08:59)
[2018-09-20] MEDS: APIXABAN 5 MG PO SCH ×2 (09:00→14:41)
[2018-09-20] MEDS: Lisinopril 20 MG Tab PO SCH (09:03)
[2018-09-20] MEDS: Calcium Carbonate/Vitamin D3 1250 MG-200 Unit Tab PO SCH ×2 (09:11→20:35)
[2018-09-20] MEDS: Hydrochlorothiazide 25 MG Tab PO SCH (09:11)
[2018-09-20] MEDS: DEXTROSE 5% IV SCH ×2 (15:06)
[2018-09-20] MEDS: WATER IV SCH ×2 (15:06)
[2018-09-20] MEDS: NAFCILLIN IV SCH ×2 (15:06)
[2018-09-21] MEDS: oxyCODONE 5 MG Tab PO PRN ×5 (02:28→22:31)
[2018-09-21] MEDS: Pantoprazole 40 MG Tab.CR PO SCH (05:49)
[2018-09-21 06:49] LABS: ANION GAP 14.9; CHLORIDE,CL 104 mmol/L (101-111); SODIUM,NA 137 mmol/L (135-145)
[2018-09-21] MEDS: APIXABAN 5 MG PO SCH ×2 (08:56→13:18)
[2018-09-21] MEDS: Lisinopril 20 MG Tab PO SCH (08:57)
[2018-09-21] MEDS: Pregabalin 75 MG Cap PO SCH ×2 (08:57→20:36)
[2018-09-21] MEDS: Cyanocobalamin (Vitamin B12) 100 MCG Tab PO SCH (08:58)
[2018-09-21] MEDS: Hydrochlorothiazide 25 MG Tab PO SCH (08:58)
[2018-09-21] MEDS: Multivitamins, Therapeutic with Minerals Tab PO SCH (08:59)
[2018-09-21] MEDS: Aspirin 81 MG Tab.EC PO SCH (08:59)
[2018-09-21] MEDS: Calcium Carbonate/Vitamin D3 1250 MG-200 Unit Tab PO SCH ×2 (09:00→20:37)
--- NOTE | 2018-09-21 13:03 | PN ---
DATE: 09/21/2018 HISTORY: Mr. Sho Low is a 58-year-old male with medical history significant for hypertension, hyperlipidemia, chronic plantar ulcer with neuropathy, gastroesophageal reflux disease, history of left shoulder, septic arthritis, and underwent debridement and synovectomy in June of 2018 and recently diagnosed with T12-L1 diskitis and evidence of paraspinous soft tissue enhancement consistent with possible psoas muscle abscess and septicemia with Staph aureus and currently admitted to swing bed to complete a total of 8 weeks of IV antibiotic. For the last 24 hours, the patient continues to have mild pain in the lower back. He grades the pain as 3-4/10 in intensity, aggravated on ambulation, relieved with rest and pain medication; nonradiating type of pain, not associated with any nausea or vomiting. Denies any chest pain. No shortness of breath. No abdominal pain. REVIEW OF SYSTEMS: Cardiovascular; respiratory; gastrointestinal; neurology; constitutional were all evaluated. PHYSICAL EXAMINATION: Vital Signs: Temperature of 98.7, pulse of 75, blood pressure of 117/70, respiratory rate of 18, and saturating at 100%. General Appearance: The patient is well oriented to time, place, and person. Follows commands spontaneously. Cardiovascular: S1 and S2 heard with normal intensity. No gallops. Respiratory: Clear to auscultation bilaterally. No wheeze. No crepitations. Abdomen: Soft. Bowel sounds positive. Nontender. No rigidity. Extremities: No edema of bilateral lower extremities. MEDICATIONS: Reviewed. Continue with: 1. Aspirin 81 mg daily. 2. Vitamin B12 50 mcg daily. 3. Colace 100 mg twice a day as needed for constipation. 4. Hydrochlorothiazide 25 mg daily. 5. Lisinopril decreased to 20 mg daily. 6. Morphine 2 mg IV q.2 hours as needed for pain. 7. Eliquis 5 mg twice a day. 8. Oxycodone 5 mg every 4 hours as needed for pain. 9. Protonix 40 mg daily. 10.MiraLax 17 g as needed for constipation. 11.Lyrica 300 mg twice a day. 12.Senokot 2 tablets twice a day. 13.Ambien 5 mg at bedtime as needed for sleep. LABORATORY DATA: WBC 4.5, hemoglobin 11.6, hematocrit 35.7, platelet count 160. Sodium 137, potassium 3.9, chloride 104, bicarb 22, BUN 22, creatinine 1, glucose 117. C-reactive protein 0.7. ESR 10. ASSESSMENT: 1. Diskitis, osteomyelitis, and possible abscess involving the T12-L1 vertebra on chronic antibiotic therapy. 2. Bacteremia with methicillin-susceptible Staph aureus. 3. Hypertension. 4. Hyperlipidemia. 5. Gastroesophageal reflux disease. PLAN: 1. Diskitis, osteomyelitis, and possible abscess with bacteremia and methicillin-susceptible Staph aureus. The patient is currently on IV antibiotics. With the nafcillin, I will be evaluated by Infectious Disease team. He will continue with IV antibiotics as suggested by Infectious Disease team. He denies any fevers or chills at this time. His ESR and CRP seems to be improving. We will continue with current antibiotics as suggested by ID. 2. Hypertension. The patient's blood pressure seems to be on the lower side. We will decrease the lisinopril to 20 mg; closely follow. We will hold the hydrochlorothiazide if needed. 3. Chronic anticoagulation, he is noted to be on Eliquis twice a day. Continue the same. 4. Pain. Continue with IV and oral pain medications. 5. Continue with physical therapy and occupational therapy while in the Swing Bed. [facility] /[id number]
[2018-09-21] MEDS: NAFCILLIN IV SCH ×2 (16:20)
[2018-09-21] MEDS: DEXTROSE 5% IV SCH ×2 (16:20)
[2018-09-21] MEDS: WATER IV SCH ×2 (16:20)
[2018-09-22] MEDS: oxyCODONE 5 MG Tab PO PRN ×4 (02:40→18:18)
[2018-09-22] MEDS: Pantoprazole 40 MG Tab.CR PO SCH (06:33)
[2018-09-22] MEDS ORDERED: Lisinopril 20 MG Tab PO SCH (09:00)
[2018-09-22] MEDS: Pregabalin 75 MG Cap PO SCH ×2 (09:00→20:43)
[2018-09-22] MEDS: Hydrochlorothiazide 25 MG Tab PO SCH (09:01)
[2018-09-22] MEDS: Calcium Carbonate/Vitamin D3 1250 MG-200 Unit Tab PO SCH ×2 (09:01→20:44)
[2018-09-22] MEDS: Cyanocobalamin (Vitamin B12) 100 MCG Tab PO SCH (09:02)
[2018-09-22] MEDS: Multivitamins, Therapeutic with Minerals Tab PO SCH (09:02)
[2018-09-22] MEDS: Aspirin 81 MG Tab.EC PO SCH (09:04)
[2018-09-22] MEDS: APIXABAN 5 MG PO SCH ×2 (09:05→15:23)
[2018-09-22] MEDS: NAFCILLIN IV SCH ×2 (16:08)
[2018-09-22] MEDS: WATER IV SCH ×2 (16:08)
[2018-09-22] MEDS: DEXTROSE 5% IV SCH ×2 (16:08)
[2018-09-22] MEDS: Sodium Chloride 0.9% 10 ML Syringe FLUSH PRN (16:09)
[2018-09-23] MEDS: oxyCODONE 5 MG Tab PO PRN ×6 (00:23→22:47)
[2018-09-23] MEDS: Pantoprazole 40 MG Tab.CR PO SCH (06:29)
[2018-09-23] MEDS: APIXABAN 5 MG PO SCH ×2 (08:50→14:34)
[2018-09-23] MEDS: Lisinopril 20 MG Tab PO SCH (08:50)
[2018-09-23] MEDS: Aspirin 81 MG Tab.EC PO SCH (08:51)
[2018-09-23] MEDS: Calcium Carbonate/Vitamin D3 1250 MG-200 Unit Tab PO SCH ×2 (08:52→21:11)
[2018-09-23] MEDS: Multivitamins, Therapeutic with Minerals Tab PO SCH (08:52)
[2018-09-23] MEDS: Cyanocobalamin (Vitamin B12) 100 MCG Tab PO SCH (08:52)
[2018-09-23] MEDS: Pregabalin 75 MG Cap PO SCH ×2 (08:53→21:10)
[2018-09-23] MEDS: Sodium Chloride 0.9% 10 ML Syringe FLUSH PRN (16:01)
[2018-09-23] MEDS: DEXTROSE 5% IV SCH ×2 (16:02)
[2018-09-23] MEDS: WATER IV SCH ×2 (16:02)
[2018-09-23] MEDS: NAFCILLIN IV SCH ×2 (16:02)
[2018-09-24] MEDS: oxyCODONE 5 MG Tab PO PRN ×5 (02:50→23:00)
[2018-09-24] MEDS: Pantoprazole 40 MG Tab.CR PO SCH (05:38)
[2018-09-24] MEDS: Cyanocobalamin (Vitamin B12) 100 MCG Tab PO SCH (08:38)
[2018-09-24] MEDS: Calcium Carbonate/Vitamin D3 1250 MG-200 Unit Tab PO SCH ×2 (08:38→21:17)
[2018-09-24] MEDS: Pregabalin 75 MG Cap PO SCH ×2 (08:39→21:17)
[2018-09-24] MEDS: Aspirin 81 MG Tab.EC PO SCH (08:39)
[2018-09-24] MEDS: Multivitamins, Therapeutic with Minerals Tab PO SCH (08:39)
[2018-09-24] MEDS: Lisinopril 20 MG Tab PO SCH (08:40)
[2018-09-24] MEDS: APIXABAN 5 MG PO SCH ×2 (08:41→14:26)
--- NOTE | 2018-09-24 09:56 | PCM.PN ---
- General Info Date of Service: 09/24/18 Subjective Update: The patient is a 58-year-old man with history of hypertension and dyslipidemia chronic plantar ulcer with neuropathy. The patient underwent debridement and synovectomy in June 2018 and recently was diagnosed with T12-L1 discitis with evidence of paraspinal soft tissue enhancement consistent with possible psoas abscess. Patient was septicemic with staphylococcal aureus MSSA. Today, Profiles no new complaint With has increased recently. Denies shortness of breath. Patient states that his appetite has been very good. - Review of Systems General: Reports: No Symptoms Pulmonary: Reports: No Symptoms Cardiovascular: Reports: No Symptoms Musculoskeletal: Reports: No Symptoms - Patient Data Vitals - Most Recent: Last Vital Signs Temp 36.9 C 09/24/18 07:33 Pulse 68 09/24/18 07:33 Resp 18 09/24/18 07:33 BP 128/75 09/24/18 08:40 Pulse Ox 97 09/24/18 07:33 Weight - Most Recent: 124.194 kg I&O - Last 24 Hours: Intake & Output 09/23/18 09/24/18 09/24/18 22:59 06:59 14:59 Intake Total 1160 487 Balance 1160 487 Med Orders - Current: Current Medications Acetaminophen (Tylenol Extra Strength) 500 mg PO Q4HR PRN PRN Reason: Pain (mild 1-3) Last Admin: 09/11/18 00:42 Dose: 500 mg Aspirin (Halfprin) 81 mg PO DAILY [facility] Last Admin: 09/24/18 08:39 Dose: 81 mg Calcium Carbonate (Calcium Carbonate/Vitamin D 1250 Mg-200 Unit) 1 tab PO BID [facility] Last Admin: 09/24/18 08:38 Dose: 1 tab Cyanocobalamin (Vitamin B12) 50 mcg PO DAILY [facility] Last Admin: 09/24/18 08:38 Dose: 50 mcg Docusate Sodium (Colace) 100 mg PO BID PRN PRN Reason: Constipation Last Admin: 09/16/18 09:21 Dose: 100 mg Nafcillin Sodium 12 gm/ (Dextrose/Water) 250 mls @ 10.417 mls/hr IV Q24H [facility] Stop: 10/12/18 14:59 Last Admin: 09/23/18 16:02 Dose: 10.4 mls/hr Lisinopril (Prinivil) 10 mg PO DAILY [facility] Last Admin: 09/24/18 08:40 Dose: 10 mg Magnesium Hydroxide (Milk Of Magnesia) 30 ml PO Q12H PRN PRN Reason: Constipation Methyl Salicylate (Icy Hot Cream) 1 gm TOP QID PRN PRN Reason: Pain (mild 1-3) Last Admin: 09/18/18 14:36 Dose: 1 applic Morphine Sulfate (Morphine) 2 mg IVPUSH Q2H PRN PRN Reason: Pain (severe 7-10) Last Admin: 09/14/18 06:14 Dose: 2 mg Multivitamins/Minerals (Vitamins And Minerals) 1 tab PO DAILY [facility] Last Admin: 09/24/18 08:39 Dose: 1 tab Apixaban [Eliquis] 5 Mg- Non-Formulary Medication 5 mg PO 0800,1400 [facility] Last Admin: 09/24/18 08:41 Dose: 5 mg Ondansetron HCl (Zofran Odt) 4 mg PO Q4H PRN PRN Reason: nausea, able to take PO Oxycodone HCl (Oxycodone) 5 mg PO Q4HR PRN PRN Reason: Pain (moderate 4-6) Last Admin: 09/24/18 08:45 Dose: 5 mg Pantoprazole Sodium (Protonix) 40 mg PO ACBRK [facility] Last Admin: 09/24/18 05:38 Dose: 40 mg Polyethylene Glycol (Miralax) 17 gm PO DAILY PRN PRN Reason: Constipation Pregabalin (Lyrica) 300 mg PO BID [facility] Last Admin: 09/24/18 08:39 Dose: 300 mg Senna/Docusate Sodium (Senna Plus) 2 tab PO BID [facility] Last Admin: 09/24/18 08:38 Dose: 2 tab Sodium Chloride (Saline Flush) 10 ml FLUSH ASDIRECTED PRN PRN Reason: Keep Vein Open Last Admin: 09/23/18 16:01 Dose: 10 ml Zolpidem Tartrate (Ambien) 5 mg PO BEDTIME PRN PRN Reason: Insomnia Last Admin: 09/17/18 01:04 Dose: 5 mg Discontinued Medications Amlodipine Besylate (Norvasc) 5 mg PO DAILY [facility] Last Admin: 09/16/18 09:23 Dose: 5 mg Calcium Carbonate (Calcium Carbonate/Vitamin D 1250 Mg-200 Unit) 1 tab PO BID [facility] Last Admin: 09/19/18 10:12 Dose: Not Given Furosemide (Lasix) 20 mg PO ONETIME ONE Stop: 09/16/18 06:28 Last Admin: 09/16/18 09:22 Dose: 20 mg Furosemide (Lasix) 20 mg IVPUSH ONETIME ONE Stop: 09/16/18 15:33 Last Admin: 09/16/18 16:08 Dose: 20 mg Hydrochlorothiazide (Hydrochlorothiazide) 12.5 mg PO DAILY [facility] Last Admin: 09/16/18 09:22 Dose: 12.5 mg Hydrochlorothiazide (Hydrochlorothiazide) 25 mg PO DAILY [facility] Last Admin: 09/22/18 09:01 Dose: 25 mg Cefazolin Sodium/Dextrose 2 gm (/ Premix) 50 mls @ 100 mls/hr IV Q8HR [facility] Stop: 10/12/18 14:01 Last Admin: 09/14/18 14:22 Dose: Not Given Nafcillin Sodium 12 gm/ Sodium (Chloride) 250 mls @ 10.417 mls/hr IV Q24H [facility] Stop: 09/17/18 14:59 Last Admin: 09/16/18 15:46 Dose: 10.417 mls/hr Lisinopril (Prinivil) 40 mg PO DAILY [facility] Last Admin: 09/21/18 08:57 Dose: 40 mg Lisinopril (Prinivil) 20 mg PO DAILY [facility] Last Admin: 09/22/18 09:03 Dose: 20 mg Non-Formulary Medication (Nf Drug) each PO DAILY [facility] Oxycodone HCl (Oxycodone) 5 mg PO .STK-MED ONE Stop: 08/30/18 05:42 Pantoprazole Sodium (Protonix) 40 mg PO .STK-MED ONE Stop: 08/30/18 04:40 - Exam General: Alert, Oriented, Cooperative Neck: Supple Lungs: Clear to Auscultation, Normal Respiratory Effort Cardiovascular: Regular Rate, Regular Rhythm Back Exam: Normal Inspection, Full Range of Motion - Problem List Review Problem List Initiated/Reviewed/Updated: Yes - My Orders Last 24 Hours: My Active Orders 09/25/18 09:49 B-TYPE NATRIURETIC PEPTIDE,BNP [CHEM] Routine - Plan Plan:: Mr. Devante Berkowitz is a 58-year-old male with past medical history significant for hypertension, hyperlipidemia, chronic plantar ulcer with neuropathy, GERD, recent admission for left shoulder septic arthritis status post IV antibiotics who later presented again to [facility] with back pain with MRI showing evidence of T12-L1 discitis and evidence of paraspinous soft tissue enhancement consistent with possible psoas muscle abscess, blood cultures positive for MSSA. His here for IV antibiotics and physical therapy. Discitis Patient is follow up by ID Continuous intravenous nafcillin Pain treatment as ordered Hypertension controlled treat with norvasc, lisinopril, hctz Monitor vital signs every shift GERD continue PPI DVT prophylaxis with h/o DVT Eliquis #. Weight Gain We'll send sample for brain natruretic peptide
[2018-09-24] MEDS: WATER IV SCH ×2 (16:12)
[2018-09-24] MEDS: NAFCILLIN IV SCH ×2 (16:12)
[2018-09-24] MEDS: DEXTROSE 5% IV SCH ×2 (16:12)
[2018-09-25] MEDS: Pantoprazole 40 MG Tab.CR PO SCH (06:29)
[2018-09-25] MEDS: Aspirin 81 MG Tab.EC PO SCH (08:17)
[2018-09-25] MEDS: Multivitamins, Therapeutic with Minerals Tab PO SCH (08:17)
[2018-09-25] MEDS: APIXABAN 5 MG PO SCH ×2 (08:17→21:59)
[2018-09-25] MEDS: Pregabalin 75 MG Cap PO SCH ×2 (08:17→21:58)
[2018-09-25] MEDS: Lisinopril 20 MG Tab PO SCH (08:18)
[2018-09-25] MEDS: Cyanocobalamin (Vitamin B12) 100 MCG Tab PO SCH (08:18)
[2018-09-25] MEDS: Calcium Carbonate/Vitamin D3 1250 MG-200 Unit Tab PO SCH ×2 (08:18→21:58)
[2018-09-25 11:32] LABS: ANION GAP 14.3; CHLORIDE,CL 106 mmol/L (101-111); SODIUM,NA 139 mmol/L (135-145)
[2018-09-25] MEDS: ceFAZolin 2 GM in Premix Bag 1 BAG IV SCH ×2 (13:29→22:00)
[2018-09-26] MEDS: Pantoprazole 40 MG Tab.CR PO SCH (06:03)
[2018-09-26] MEDS: ceFAZolin 2 GM in Premix Bag 1 BAG IV SCH ×3 (06:03→22:04)
[2018-09-26] MEDS: Calcium Carbonate/Vitamin D3 1250 MG-200 Unit Tab PO SCH ×2 (08:38→21:51)
[2018-09-26] MEDS: Aspirin 81 MG Tab.EC PO SCH (08:38)
[2018-09-26] MEDS: Pregabalin 75 MG Cap PO SCH ×2 (08:39→21:50)
[2018-09-26] MEDS: Lisinopril 20 MG Tab PO SCH (08:39)
[2018-09-26] MEDS: Cyanocobalamin (Vitamin B12) 100 MCG Tab PO SCH (08:40)
[2018-09-26] MEDS: Multivitamins, Therapeutic with Minerals Tab PO SCH (08:40)
[2018-09-26] MEDS: APIXABAN 5 MG PO SCH ×2 (08:42→13:23)
[2018-09-26] MEDS: oxyCODONE 5 MG Tab PO PRN ×2 (08:51→13:30)
[2018-09-26] MEDS ORDERED: Furosemide 40 MG/4 ML VIAL IVPUSH ONE (09:00)
[2018-09-27] MEDS: ceFAZolin 2 GM in Premix Bag 1 BAG IV SCH ×3 (05:51→22:05)
[2018-09-27] MEDS: Pantoprazole 40 MG Tab.CR PO SCH (05:51)
[2018-09-27] MEDS: Multivitamins, Therapeutic with Minerals Tab PO SCH (08:50)
[2018-09-27] MEDS: Lisinopril 20 MG Tab PO SCH (08:50)
[2018-09-27] MEDS: Aspirin 81 MG Tab.EC PO SCH (08:50)
[2018-09-27] MEDS: Calcium Carbonate/Vitamin D3 1250 MG-200 Unit Tab PO SCH ×2 (08:50→22:05)
[2018-09-27] MEDS: Pregabalin 75 MG Cap PO SCH ×2 (08:52→22:05)
[2018-09-27] MEDS: Cyanocobalamin (Vitamin B12) 100 MCG Tab PO SCH (08:53)
[2018-09-27] MEDS: APIXABAN 5 MG PO SCH ×2 (08:53→13:03)
[2018-09-27] MEDS ORDERED: Lisinopril 10 MG Tab PO ONE (12:33)
[2018-09-27] MEDS: Sodium Chloride 0.9% 10 ML Syringe FLUSH PRN (13:04)
[2018-09-27] MEDS: oxyCODONE 5 MG Tab PO PRN (22:15)
[2018-09-27] MEDS: Zolpidem 5 MG Tab PO PRN (23:43)
[2018-09-28] MEDS: ceFAZolin 2 GM in Premix Bag 1 BAG IV SCH ×3 (06:20→21:19)
[2018-09-28] MEDS: Pantoprazole 40 MG Tab.CR PO SCH (06:20)
[2018-09-28 07:21] LABS: ANION GAP 12.1; CHLORIDE,CL 110 mmol/L (101-111); SODIUM,NA 139 mmol/L (135-145)
[2018-09-28] MEDS: Cyanocobalamin (Vitamin B12) 100 MCG Tab PO SCH (08:35)
[2018-09-28] MEDS: Calcium Carbonate/Vitamin D3 1250 MG-200 Unit Tab PO SCH ×2 (08:35→21:18)
[2018-09-28] MEDS: Aspirin 81 MG Tab.EC PO SCH (08:35)
[2018-09-28] MEDS: APIXABAN 5 MG PO SCH ×2 (08:35→13:05)
[2018-09-28] MEDS: Pregabalin 75 MG Cap PO SCH ×2 (08:36→21:17)
[2018-09-28] MEDS: Multivitamins, Therapeutic with Minerals Tab PO SCH (08:36)
[2018-09-28] MEDS: Lisinopril 20 MG Tab PO SCH (08:37)
[2018-09-29] MEDS: ceFAZolin 2 GM in Premix Bag 1 BAG IV SCH ×3 (05:00→21:32)
[2018-09-29] MEDS: Pantoprazole 40 MG Tab.CR PO SCH (05:39)
[2018-09-29] MEDS: Cyanocobalamin (Vitamin B12) 100 MCG Tab PO SCH (08:09)
[2018-09-29] MEDS: Calcium Carbonate/Vitamin D3 1250 MG-200 Unit Tab PO SCH ×2 (08:09→21:30)
[2018-09-29] MEDS: Lisinopril 20 MG Tab PO SCH (08:09)
[2018-09-29] MEDS: Pregabalin 75 MG Cap PO SCH ×2 (08:09→21:30)
[2018-09-29] MEDS: Multivitamins, Therapeutic with Minerals Tab PO SCH (08:09)
[2018-09-29] MEDS: Aspirin 81 MG Tab.EC PO SCH (08:09)
[2018-09-29] MEDS: APIXABAN 5 MG PO SCH ×2 (08:10→13:09)
[2018-09-30] MEDS: ceFAZolin 2 GM in Premix Bag 1 BAG IV SCH ×3 (06:15→21:57)
[2018-09-30] MEDS: Pantoprazole 40 MG Tab.CR PO SCH (06:45)
[2018-09-30] MEDS: Cyanocobalamin (Vitamin B12) 100 MCG Tab PO SCH (08:49)
[2018-09-30] MEDS: Pregabalin 75 MG Cap PO SCH ×2 (08:49→22:05)
[2018-09-30] MEDS: APIXABAN 5 MG PO SCH ×2 (08:49→13:16)
[2018-09-30] MEDS: Calcium Carbonate/Vitamin D3 1250 MG-200 Unit Tab PO SCH ×2 (08:50→22:06)
[2018-09-30] MEDS: Lisinopril 20 MG Tab PO SCH (08:50)
[2018-09-30] MEDS: Multivitamins, Therapeutic with Minerals Tab PO SCH (08:50)
[2018-09-30] MEDS: Aspirin 81 MG Tab.EC PO SCH (08:50)
[2018-09-30] MEDS: Sodium Chloride 0.9% 10 ML Syringe FLUSH PRN ×3 (13:13→22:38)
[2018-10-01] MEDS: Sodium Chloride 0.9% 10 ML Syringe FLUSH PRN ×2 (05:05→06:00)
[2018-10-01] MEDS: ceFAZolin 2 GM in Premix Bag 1 BAG IV SCH ×3 (05:06→21:30)
[2018-10-01] MEDS: Pantoprazole 40 MG Tab.CR PO SCH (05:15)
[2018-10-01] MEDS: Lisinopril 20 MG Tab PO SCH (09:03)
[2018-10-01] MEDS: Pregabalin 75 MG Cap PO SCH ×2 (09:03→21:30)
[2018-10-01] MEDS: APIXABAN 5 MG PO SCH ×2 (09:03→13:07)
[2018-10-01] MEDS: Aspirin 81 MG Tab.EC PO SCH (09:03)
[2018-10-01] MEDS: Cyanocobalamin (Vitamin B12) 100 MCG Tab PO SCH (09:04)
[2018-10-01] MEDS: Calcium Carbonate/Vitamin D3 1250 MG-200 Unit Tab PO SCH ×2 (09:04→21:30)
[2018-10-01] MEDS: Multivitamins, Therapeutic with Minerals Tab PO SCH (09:04)
[2018-10-02] MEDS: Pantoprazole 40 MG Tab.CR PO SCH (05:49)
[2018-10-02] MEDS: ceFAZolin 2 GM in Premix Bag 1 BAG IV SCH ×3 (05:49→22:24)
[2018-10-02] MEDS: Pregabalin 75 MG Cap PO SCH ×2 (08:55→22:23)
[2018-10-02] MEDS: Multivitamins, Therapeutic with Minerals Tab PO SCH (08:55)
[2018-10-02] MEDS: Cyanocobalamin (Vitamin B12) 100 MCG Tab PO SCH (08:55)
[2018-10-02] MEDS: Lisinopril 20 MG Tab PO SCH (08:56)
[2018-10-02] MEDS: Calcium Carbonate/Vitamin D3 1250 MG-200 Unit Tab PO SCH ×2 (08:57→22:23)
[2018-10-02] MEDS: Aspirin 81 MG Tab.EC PO SCH (08:57)
[2018-10-02] MEDS: APIXABAN 5 MG PO SCH ×2 (08:57→13:20)
--- NOTE | 2018-10-02 12:10 | PCM.PN ---
- General Info Date of Service: 10/02/18 Admission Dx/Problem (Free Text): Discitis, osteomyelitis of T12-L1 Subjective Update: The patient is a 58-year-old man with history of hypertension and dyslipidemia chronic plantar ulcer with neuropathy. The patient underwent debridement and synovectomy in June 2018 and recently was diagnosed with T12-L1 discitis with evidence of paraspinal soft tissue enhancement consistent with possible psoas abscess. Patient was septicemic with staphylococcal aureus MSSA. Today: No acute complaints. States that nursing staff have been nice to him and treated him very well. Denies f/c, chest pain, shortness of breath, abd pain, n/ v/d/c or any acute symptoms. - Review of Systems Systems Review Comment:: as per update above. - Patient Data Vitals - Most Recent: Last Vital Signs Temp 97.8 F 10/02/18 08:00 Pulse 65 10/02/18 08:00 Resp 18 10/02/18 08:00 BP 131/83 10/02/18 08:56 Pulse Ox 100 10/02/18 08:00 Weight - Most Recent: 272 lb 9.6 oz I&O - Last 24 Hours: Intake & Output 10/01/18 10/02/18 10/02/18 22:59 06:59 14:59 Intake Total 740 Balance 740 Med Orders - Current: Current Medications Acetaminophen (Tylenol Extra Strength) 500 mg PO Q4HR PRN PRN Reason: Pain (mild 1-3) Last Admin: 09/11/18 00:42 Dose: 500 mg Aspirin (Halfprin) 81 mg PO DAILY [facility] Last Admin: 10/02/18 08:57 Dose: 81 mg Calcium Carbonate (Calcium Carbonate/Vitamin D 1250 Mg-200 Unit) 1 tab PO BID [facility] Last Admin: 10/02/18 08:57 Dose: 1 tab Cyanocobalamin (Vitamin B12) 50 mcg PO DAILY [facility] Last Admin: 10/02/18 08:55 Dose: 50 mcg Docusate Sodium (Colace) 100 mg PO BID PRN PRN Reason: Constipation Last Admin: 09/16/18 09:21 Dose: 100 mg Cefazolin Sodium/Dextrose 2 gm (/ Premix) 50 mls @ 100 mls/hr IV Q8H [facility] Last Admin: 10/02/18 05:49 Dose: 100 mls/hr Lisinopril (Prinivil) 20 mg PO DAILY [facility] Last Admin: 10/02/18 08:56 Dose: 20 mg Magnesium Hydroxide (Milk Of Magnesia) 30 ml PO Q12H PRN PRN Reason: Constipation Methyl Salicylate (Icy Hot Cream) 1 gm TOP QID PRN PRN Reason: Pain (mild 1-3) Last Admin: 09/18/18 14:36 Dose: 1 applic Morphine Sulfate (Morphine) 2 mg IVPUSH Q2H PRN PRN Reason: Pain (severe 7-10) Last Admin: 09/14/18 06:14 Dose: 2 mg Multivitamins/Minerals (Vitamins And Minerals) 1 tab PO DAILY [facility] Last Admin: 10/02/18 08:55 Dose: 1 tab Apixaban [Eliquis] 5 Mg- Non-Formulary Medication 5 mg PO 0800,1400 [facility] Last Admin: 10/02/18 08:57 Dose: 5 mg Ondansetron HCl (Zofran Odt) 4 mg PO Q4H PRN PRN Reason: nausea, able to take PO Oxycodone HCl (Oxycodone) 5 mg PO Q4HR PRN PRN Reason: Pain (moderate 4-6) Last Admin: 09/27/18 22:15 Dose: 5 mg Pantoprazole Sodium (Protonix) 40 mg PO ACBRK [facility] Last Admin: 10/02/18 05:49 Dose: 40 mg Polyethylene Glycol (Miralax) 17 gm PO DAILY PRN PRN Reason: Constipation Pregabalin (Lyrica) 300 mg PO BID [facility] Last Admin: 10/02/18 08:55 Dose: 300 mg Sodium Chloride (Saline Flush) 10 ml FLUSH ASDIRECTED PRN PRN Reason: Keep Vein Open Last Admin: 10/01/18 06:00 Dose: 10 ml Zolpidem Tartrate (Ambien) 5 mg PO BEDTIME PRN PRN Reason: Insomnia Last Admin: 09/27/18 23:43 Dose: 5 mg Discontinued Medications Amlodipine Besylate (Norvasc) 5 mg PO DAILY [facility] Last Admin: 09/16/18 09:23 Dose: 5 mg Calcium Carbonate (Calcium Carbonate/Vitamin D 1250 Mg-200 Unit) 1 tab PO BID [facility] Last Admin: 09/19/18 10:12 Dose: Not Given Furosemide (Lasix) 20 mg PO ONETIME ONE Stop: 09/16/18 06:28 Last Admin: 09/16/18 09:22 Dose: 20 mg Furosemide (Lasix) 20 mg IVPUSH ONETIME ONE Stop: 09/16/18 15:33 Last Admin: 09/16/18 16:08 Dose: 20 mg Furosemide (Lasix) 40 mg IVPUSH ONETIME ONE Stop: 09/26/18 09:01 Last Admin: 09/26/18 08:40 Dose: 40 mg Hydrochlorothiazide (Hydrochlorothiazide) 12.5 mg PO DAILY [facility] Last Admin: 09/16/18 09:22 Dose: 12.5 mg Hydrochlorothiazide (Hydrochlorothiazide) 25 mg PO DAILY [facility] Last Admin: 09/22/18 09:01 Dose: 25 mg Cefazolin Sodium/Dextrose 2 gm (/ Premix) 50 mls @ 100 mls/hr IV Q8HR [facility] Stop: 10/12/18 14:01 Last Admin: 09/14/18 14:22 Dose: Not Given Nafcillin Sodium 12 gm/ Sodium (Chloride) 250 mls @ 10.417 mls/hr IV Q24H [facility] Stop: 09/17/18 14:59 Last Admin: 09/16/18 15:46 Dose: 10.417 mls/hr Nafcillin Sodium 12 gm/ (Dextrose/Water) 250 mls @ 10.417 mls/hr IV Q24H [facility] Stop: 10/12/18 14:59 Last Admin: 09/24/18 16:12 Dose: 10.4 mls/hr Cefazolin Sodium/Dextrose 2 gm (/ Premix) 50 mls @ 100 mls/hr IV Q8H [facility] Last Admin: 10/01/18 13:14 Dose: 100 mls/hr Lisinopril (Prinivil) 40 mg PO DAILY [facility] Last Admin: 09/21/18 08:57 Dose: 40 mg Lisinopril (Prinivil) 20 mg PO DAILY [facility] Last Admin: 09/22/18 09:03 Dose: 20 mg Lisinopril (Prinivil) 10 mg PO DAILY [facility] Last Admin: 09/27/18 08:50 Dose: 10 mg Lisinopril (Prinivil) 10 mg PO ONETIME ONE Stop: 09/27/18 12:34 Last Admin: 09/27/18 13:01 Dose: 10 mg Non-Formulary Medication (Nf Drug) each PO DAILY [facility] Oxycodone HCl (Oxycodone) 5 mg PO .STK-MED ONE Stop: 08/30/18 05:42 Pantoprazole Sodium (Protonix) 40 mg PO .STK-MED ONE Stop: 08/30/18 04:40 Senna/Docusate Sodium (Senna Plus) 2 tab PO BID [facility] Last Admin: 10/01/18 09:04 Dose: Not Given - Exam General: Alert, Oriented, Cooperative, No Acute Distress HEENT: Pupils Equal, Pupils Reactive, Mucous Membr. Moist/[place] Neck: Supple Lungs: Clear to Auscultation, Normal Respiratory Effort Cardiovascular: Regular Rate, Regular Rhythm GI/Abdominal Exam: Normal Bowel Sounds, Soft, Non-Tender, No Distention Back Exam: Paraspinal Tenderness Extremities: Normal Inspection, Non-Tender, No Pedal Edema Skin: Warm, Dry, Intact Neurological: No New Focal Deficit Psy/Mental Status: Alert, Normal Affect, Normal Mood - Problem List Review Problem List Initiated/Reviewed/Updated: Yes - My Orders Last 24 Hours: My Active Orders 10/05/18 04:00 CMP [COMPREHENSIVE METABOLIC PN,CMP] [CHEM] Routine CRP [C-REACTIVE PROTEIN] [CHEM] Routine ESR [SEDIMENTATION RATE MANUAL] [HEME] Routine - Plan Plan:: Mr. Devante Berkowitz is a 58-year-old male with past medical history significant for hypertension, hyperlipidemia, chronic plantar ulcer with neuropathy, GERD, recent admission for left shoulder septic arthritis status post IV antibiotics who later presented again to [facility] with back pain with MRI showing evidence of T12-L1 discitis and evidence of paraspinous soft tissue enhancement consistent with possible psoas muscle abscess, blood cultures positive for MSSA. His here for IV antibiotics and physical therapy. Discitis Patient is follow up by ID Continuous intravenous nafcillin Pain treatment as ordered Hypertension controlled treat with norvasc, lisinopril, hctz Monitor vital signs every shift GERD continue PPI DVT prophylaxis with h/o DVT Eliquis
[2018-10-02] MEDS: Sodium Chloride 0.9% 10 ML Syringe FLUSH PRN (13:16)
[2018-10-03] MEDS: Pantoprazole 40 MG Tab.CR PO SCH (06:12)
[2018-10-03] MEDS: ceFAZolin 2 GM in Premix Bag 1 BAG IV SCH ×3 (06:13→21:27)
[2018-10-03] MEDS: Cyanocobalamin (Vitamin B12) 100 MCG Tab PO SCH (08:20)
[2018-10-03] MEDS: APIXABAN 5 MG PO SCH ×2 (08:20→13:31)
[2018-10-03] MEDS: Aspirin 81 MG Tab.EC PO SCH (08:20)
[2018-10-03] MEDS: Calcium Carbonate/Vitamin D3 1250 MG-200 Unit Tab PO SCH ×2 (08:20→21:19)
[2018-10-03] MEDS: Multivitamins, Therapeutic with Minerals Tab PO SCH (08:21)
[2018-10-03] MEDS: Lisinopril 20 MG Tab PO SCH (08:21)
[2018-10-03] MEDS: Pregabalin 75 MG Cap PO SCH ×2 (08:21→21:19)
[2018-10-03] MEDS: Sodium Chloride 0.9% 10 ML Syringe FLUSH PRN ×3 (13:27→22:12)
[2018-10-04] MEDS: ceFAZolin 2 GM in Premix Bag 1 BAG IV SCH ×3 (05:31→22:16)
[2018-10-04] MEDS: Sodium Chloride 0.9% 10 ML Syringe FLUSH PRN ×3 (05:31→13:07)
[2018-10-04] MEDS: Pantoprazole 40 MG Tab.CR PO SCH (05:36)
[2018-10-04] MEDS: Cyanocobalamin (Vitamin B12) 100 MCG Tab PO SCH (08:51)
[2018-10-04] MEDS: APIXABAN 5 MG PO SCH ×2 (08:51→13:11)
[2018-10-04] MEDS: Lisinopril 20 MG Tab PO SCH (08:52)
[2018-10-04] MEDS: Calcium Carbonate/Vitamin D3 1250 MG-200 Unit Tab PO SCH ×2 (08:52→22:16)
[2018-10-04] MEDS: Pregabalin 75 MG Cap PO SCH ×2 (08:53→22:16)
[2018-10-04] MEDS: Aspirin 81 MG Tab.EC PO SCH (08:53)
[2018-10-04] MEDS: Multivitamins, Therapeutic with Minerals Tab PO SCH (08:53)
[2018-10-05 04:26] LABS: ANION GAP 14.2; CHLORIDE,CL 107 mmol/L (101-111); SODIUM,NA 138 mmol/L (135-145)
[2018-10-05] MEDS: ceFAZolin 2 GM in Premix Bag 1 BAG IV SCH ×3 (06:50→21:56)
[2018-10-05] MEDS: Lisinopril 20 MG Tab PO SCH ×2 (06:54→09:54)
[2018-10-05] MEDS: Pantoprazole 40 MG Tab.CR PO SCH (06:59)
[2018-10-05] MEDS: Pregabalin 75 MG Cap PO SCH ×3 (07:07→21:56)
[2018-10-05] MEDS: Sodium Chloride 0.9% 10 ML Syringe FLUSH PRN ×3 (07:21→22:24)
[2018-10-05] MEDS: APIXABAN 5 MG PO SCH ×3 (09:53→22:09)
[2018-10-05] MEDS: Aspirin 81 MG Tab.EC PO SCH (09:53)
[2018-10-05] MEDS: Calcium Carbonate/Vitamin D3 1250 MG-200 Unit Tab PO SCH ×2 (09:53→21:57)
[2018-10-05] MEDS: Cyanocobalamin (Vitamin B12) 100 MCG Tab PO SCH (09:54)
[2018-10-05] MEDS: Multivitamins, Therapeutic with Minerals Tab PO SCH (09:55)
[2018-10-06] MEDS: Pantoprazole 40 MG Tab.CR PO SCH (05:31)
[2018-10-06] MEDS: Sodium Chloride 0.9% 10 ML Syringe FLUSH PRN ×3 (05:31→21:21)
[2018-10-06] MEDS: ceFAZolin 2 GM in Premix Bag 1 BAG IV SCH ×3 (05:32→21:22)
[2018-10-06] MEDS: Pregabalin 75 MG Cap PO SCH ×2 (09:01→21:31)
[2018-10-06] MEDS: Aspirin 81 MG Tab.EC PO SCH (09:02)
[2018-10-06] MEDS: Multivitamins, Therapeutic with Minerals Tab PO SCH (09:02)
[2018-10-06] MEDS: Calcium Carbonate/Vitamin D3 1250 MG-200 Unit Tab PO SCH ×2 (09:02→21:29)
[2018-10-06] MEDS: Lisinopril 20 MG Tab PO SCH (09:03)
[2018-10-06] MEDS: Cyanocobalamin (Vitamin B12) 100 MCG Tab PO SCH (09:04)
[2018-10-06] MEDS: APIXABAN 5 MG PO SCH ×2 (09:06→13:31)
--- NOTE | 2018-10-06 09:56 | PCM.PN ---
- General Info Date of Service: 10/06/18 Subjective Update: The patient is a 58-year-old man with history of hypertension and dyslipidemia chronic plantar ulcer with neuropathy. The patient underwent debridement and synovectomy in June 2018 and recently was diagnosed with T12-L1 discitis with evidence of paraspinal soft tissue enhancement consistent with possible psoas abscess. Patient was septicemic with staphylococcal aureus MSSA. Today: No new complaints. Denies f/c, chest pain, shortness of breath, abd pain, n/v/d/c or any acute symptoms. Had a visit with ID yesterday. Plan for one more week of IV antibiotic therapy. Functional Status: Reports: Tolerating Diet - Review of Systems General: Denies: Fever Pulmonary: Denies: Shortness of Breath Cardiovascular: Denies: Chest Pain Gastrointestinal: Denies: Abdominal Pain Genitourinary: Denies: Dysuria - Patient Data Vitals - Most Recent: Last Vital Signs Temp 36.9 C 10/06/18 08:00 Pulse 66 10/06/18 08:00 Resp 18 10/06/18 08:00 BP 121/87 10/06/18 09:03 Pulse Ox 100 10/06/18 08:00 Weight - Most Recent: 124.556 kg I&O - Last 24 Hours: Intake & Output 10/05/18 10/06/18 10/06/18 22:59 06:59 14:59 Intake Total 50 50 840 Balance 50 50 840 Med Orders - Current: Current Medications Acetaminophen (Tylenol Extra Strength) 500 mg PO Q4HR PRN PRN Reason: Pain (mild 1-3) Last Admin: 09/11/18 00:42 Dose: 500 mg Aspirin (Halfprin) 81 mg PO DAILY [facility] Last Admin: 10/06/18 09:02 Dose: 81 mg Calcium Carbonate (Calcium Carbonate/Vitamin D 1250 Mg-200 Unit) 1 tab PO BID [facility] Last Admin: 10/06/18 09:02 Dose: 1 tab Cyanocobalamin (Vitamin B12) 50 mcg PO DAILY [facility] Last Admin: 10/06/18 09:04 Dose: 50 mcg Docusate Sodium (Colace) 100 mg PO BID PRN PRN Reason: Constipation Last Admin: 09/16/18 09:21 Dose: 100 mg Cefazolin Sodium/Dextrose 2 gm (/ Premix) 50 mls @ 100 mls/hr IV Q8H [facility] Last Infusion: 10/06/18 06:35 Dose: Infused Lisinopril (Prinivil) 20 mg PO DAILY [facility] Last Admin: 10/06/18 09:03 Dose: 20 mg Magnesium Hydroxide (Milk Of Magnesia) 30 ml PO Q12H PRN PRN Reason: Constipation Methyl Salicylate (Icy Hot Cream) 1 gm TOP QID PRN PRN Reason: Pain (mild 1-3) Last Admin: 09/18/18 14:36 Dose: 1 applic Morphine Sulfate (Morphine) 2 mg IVPUSH Q2H PRN PRN Reason: Pain (severe 7-10) Last Admin: 09/14/18 06:14 Dose: 2 mg Multivitamins/Minerals (Vitamins And Minerals) 1 tab PO DAILY [facility] Last Admin: 10/06/18 09:02 Dose: 1 tab Apixaban [Eliquis] 5 Mg- Non-Formulary Medication 5 mg PO 0800,1400 [facility] Last Admin: 10/06/18 09:06 Dose: 5 mg Ondansetron HCl (Zofran Odt) 4 mg PO Q4H PRN PRN Reason: nausea, able to take PO Oxycodone HCl (Oxycodone) 5 mg PO Q4HR PRN PRN Reason: Pain (moderate 4-6) Last Admin: 09/27/18 22:15 Dose: 5 mg Pantoprazole Sodium (Protonix) 40 mg PO ACBRK [facility] Last Admin: 10/06/18 05:31 Dose: 40 mg Polyethylene Glycol (Miralax) 17 gm PO DAILY PRN PRN Reason: Constipation Pregabalin (Lyrica) 300 mg PO BID [facility] Last Admin: 10/06/18 09:01 Dose: 300 mg Sodium Chloride (Saline Flush) 10 ml FLUSH ASDIRECTED PRN PRN Reason: Keep Vein Open Last Admin: 10/06/18 05:31 Dose: 10 ml Zolpidem Tartrate (Ambien) 5 mg PO BEDTIME PRN PRN Reason: Insomnia Last Admin: 09/27/18 23:43 Dose: 5 mg Discontinued Medications Amlodipine Besylate (Norvasc) 5 mg PO DAILY [facility] Last Admin: 09/16/18 09:23 Dose: 5 mg Calcium Carbonate (Calcium Carbonate/Vitamin D 1250 Mg-200 Unit) 1 tab PO BID [facility] Last Admin: 09/19/18 10:12 Dose: Not Given Furosemide (Lasix) 20 mg PO ONETIME ONE Stop: 09/16/18 06:28 Last Admin: 09/16/18 09:22 Dose: 20 mg Furosemide (Lasix) 20 mg IVPUSH ONETIME ONE Stop: 09/16/18 15:33 Last Admin: 09/16/18 16:08 Dose: 20 mg Furosemide (Lasix) 40 mg IVPUSH ONETIME ONE Stop: 09/26/18 09:01 Last Admin: 09/26/18 08:40 Dose: 40 mg Hydrochlorothiazide (Hydrochlorothiazide) 12.5 mg PO DAILY [facility] Last Admin: 09/16/18 09:22 Dose: 12.5 mg Hydrochlorothiazide (Hydrochlorothiazide) 25 mg PO DAILY [facility] Last Admin: 09/22/18 09:01 Dose: 25 mg Cefazolin Sodium/Dextrose 2 gm (/ Premix) 50 mls @ 100 mls/hr IV Q8HR [facility] Stop: 10/12/18 14:01 Last Admin: 09/14/18 14:22 Dose: Not Given Nafcillin Sodium 12 gm/ Sodium (Chloride) 250 mls @ 10.417 mls/hr IV Q24H [facility] Stop: 09/17/18 14:59 Last Admin: 09/16/18 15:46 Dose: 10.417 mls/hr Nafcillin Sodium 12 gm/ (Dextrose/Water) 250 mls @ 10.417 mls/hr IV Q24H [facility] Stop: 10/12/18 14:59 Last Admin: 09/24/18 16:12 Dose: 10.4 mls/hr Cefazolin Sodium/Dextrose 2 gm (/ Premix) 50 mls @ 100 mls/hr IV Q8H [facility] Last Admin: 10/01/18 13:14 Dose: 100 mls/hr Lisinopril (Prinivil) 40 mg PO DAILY [facility] Last Admin: 09/21/18 08:57 Dose: 40 mg Lisinopril (Prinivil) 20 mg PO DAILY [facility] Last Admin: 09/22/18 09:03 Dose: 20 mg Lisinopril (Prinivil) 10 mg PO DAILY [facility] Last Admin: 09/27/18 08:50 Dose: 10 mg Lisinopril (Prinivil) 10 mg PO ONETIME ONE Stop: 09/27/18 12:34 Last Admin: 09/27/18 13:01 Dose: 10 mg Non-Formulary Medication (Nf Drug) each PO DAILY [facility] Oxycodone HCl (Oxycodone) 5 mg PO .STK-MED ONE Stop: 08/30/18 05:42 Pantoprazole Sodium (Protonix) 40 mg PO .STK-MED ONE Stop: 08/30/18 04:40 Senna/Docusate Sodium (Senna Plus) 2 tab PO BID [facility] Last Admin: 10/01/18 09:04 Dose: Not Given - Exam General: Alert, Oriented Neck: Supple Lungs: Clear to Auscultation, Normal Respiratory Effort Cardiovascular: Regular Rate, Regular Rhythm Skin: Warm Neurological: No New Focal Deficit Psy/Mental Status: Alert, Normal Affect, Normal Mood - Problem List & Annotations (1) Osteomyelitis SNOMED Code(s): 13667345 Code(s): M86.9 - OSTEOMYELITIS, UNSPECIFIED Status: Acute Current Visit: No Qualifiers: Osteomyelitis type: unspecified type Osteomyelitis location: other site Qualified Code(s): M86.9 - Osteomyelitis, unspecified - Problem List Review Problem List Initiated/Reviewed/Updated: Yes - Plan Plan:: Mr. Devante Bekrowitz is a 58-year-old male with past medical history significant for hypertension, hyperlipidemia, chronic plantar ulcer with neuropathy, GERD, recent admission for left shoulder septic arthritis status post IV antibiotics who later presented again to [facility] with back pain with MRI showing evidence of T12-L1 discitis and evidence of paraspinous soft tissue enhancement consistent with possible psoas muscle abscess, blood cultures positive for MSSA. He is here for IV antibiotics and physical therapy. Discitis Patient is follow up by ID, next appointment in a week Continuous intravenous cefazolin for one more week Pain treatment as ordered Hypertension controlled treat with norvasc, lisinopril, hctz Monitor vital signs every shift GERD continue PPI DVT prophylaxis with h/o DVT Eliquis Discharge plan Likely discharge in a week from now following ID appointment
[2018-10-07] MEDS: ceFAZolin 2 GM in Premix Bag 1 BAG IV SCH ×3 (06:10→21:56)
[2018-10-07] MEDS: Sodium Chloride 0.9% 10 ML Syringe FLUSH PRN ×2 (06:10→06:48)
[2018-10-07] MEDS: Pantoprazole 40 MG Tab.CR PO SCH (06:11)
[2018-10-07] MEDS: APIXABAN 5 MG PO SCH ×2 (08:00→13:27)
[2018-10-07] MEDS: Multivitamins, Therapeutic with Minerals Tab PO SCH (08:00)
[2018-10-07] MEDS: Pregabalin 75 MG Cap PO SCH ×2 (08:01→21:56)
[2018-10-07] MEDS: Cyanocobalamin (Vitamin B12) 100 MCG Tab PO SCH (08:02)
[2018-10-07] MEDS: Aspirin 81 MG Tab.EC PO SCH (08:02)
[2018-10-07] MEDS: Lisinopril 20 MG Tab PO SCH (08:02)
[2018-10-07] MEDS: Calcium Carbonate/Vitamin D3 1250 MG-200 Unit Tab PO SCH ×2 (08:02→21:56)
[2018-10-08] MEDS: Pantoprazole 40 MG Tab.CR PO SCH (06:07)
[2018-10-08] MEDS: ceFAZolin 2 GM in Premix Bag 1 BAG IV SCH ×3 (06:07→22:26)
[2018-10-08] MEDS: APIXABAN 5 MG PO SCH ×2 (08:30→13:30)
[2018-10-08] MEDS: Multivitamins, Therapeutic with Minerals Tab PO SCH (08:31)
[2018-10-08] MEDS: Aspirin 81 MG Tab.EC PO SCH (08:31)
[2018-10-08] MEDS: Cyanocobalamin (Vitamin B12) 100 MCG Tab PO SCH (08:31)
[2018-10-08] MEDS: Lisinopril 20 MG Tab PO SCH (08:32)
[2018-10-08] MEDS: Calcium Carbonate/Vitamin D3 1250 MG-200 Unit Tab PO SCH ×2 (08:32→22:29)
[2018-10-08] MEDS: Pregabalin 75 MG Cap PO SCH ×2 (08:33→22:33)
[2018-10-08] MEDS: Sodium Chloride 0.9% 10 ML Syringe FLUSH PRN (22:26)
[2018-10-09] MEDS: Sodium Chloride 0.9% 10 ML Syringe FLUSH PRN ×5 (05:51→22:27)
[2018-10-09] MEDS: ceFAZolin 2 GM in Premix Bag 1 BAG IV SCH ×3 (05:51→21:55)
[2018-10-09] MEDS: Pantoprazole 40 MG Tab.CR PO SCH (05:56)
[2018-10-09] MEDS: Multivitamins, Therapeutic with Minerals Tab PO SCH (08:52)
[2018-10-09] MEDS: Cyanocobalamin (Vitamin B12) 100 MCG Tab PO SCH (08:52)
[2018-10-09] MEDS: Pregabalin 75 MG Cap PO SCH ×2 (08:53→22:04)
[2018-10-09] MEDS: Calcium Carbonate/Vitamin D3 1250 MG-200 Unit Tab PO SCH ×2 (08:54→22:02)
[2018-10-09] MEDS: Lisinopril 20 MG Tab PO SCH (08:54)
[2018-10-09] MEDS: APIXABAN 5 MG PO SCH ×2 (08:55→13:15)
[2018-10-09] MEDS: Aspirin 81 MG Tab.EC PO SCH (08:55)
[2018-10-10] MEDS: Sodium Chloride 0.9% 10 ML Syringe FLUSH PRN ×4 (06:05→21:51)
[2018-10-10] MEDS: ceFAZolin 2 GM in Premix Bag 1 BAG IV SCH ×3 (06:13→21:52)
[2018-10-10] MEDS: Pantoprazole 40 MG Tab.CR PO SCH (06:15)
[2018-10-10] MEDS: Cyanocobalamin (Vitamin B12) 100 MCG Tab PO SCH (09:18)
[2018-10-10] MEDS: Pregabalin 75 MG Cap PO SCH ×2 (09:18→21:59)
[2018-10-10] MEDS: Multivitamins, Therapeutic with Minerals Tab PO SCH (09:18)
[2018-10-10] MEDS: Calcium Carbonate/Vitamin D3 1250 MG-200 Unit Tab PO SCH ×2 (09:18→21:58)
[2018-10-10] MEDS: APIXABAN 5 MG PO SCH ×2 (09:19→13:18)
[2018-10-10] MEDS: Lisinopril 20 MG Tab PO SCH (09:19)
[2018-10-10] MEDS: Aspirin 81 MG Tab.EC PO SCH (09:19)
[2018-10-11] MEDS: Pantoprazole 40 MG Tab.CR PO SCH (05:45)
[2018-10-11] MEDS: Sodium Chloride 0.9% 10 ML Syringe FLUSH PRN ×2 (05:46→21:56)
[2018-10-11] MEDS: ceFAZolin 2 GM in Premix Bag 1 BAG IV SCH ×3 (05:47→21:57)
[2018-10-11] MEDS: Lisinopril 20 MG Tab PO SCH (08:40)
[2018-10-11] MEDS: Multivitamins, Therapeutic with Minerals Tab PO SCH (08:40)
[2018-10-11] MEDS: Cyanocobalamin (Vitamin B12) 100 MCG Tab PO SCH (08:40)
[2018-10-11] MEDS: APIXABAN 5 MG PO SCH ×2 (08:41→13:23)
[2018-10-11] MEDS: Aspirin 81 MG Tab.EC PO SCH (08:41)
[2018-10-11] MEDS: Calcium Carbonate/Vitamin D3 1250 MG-200 Unit Tab PO SCH ×2 (08:46→21:54)
[2018-10-11] MEDS: Pregabalin 75 MG Cap PO SCH ×2 (08:48→21:54)
[2018-10-12] MEDS: Pantoprazole 40 MG Tab.CR PO SCH (06:14)
[2018-10-12] MEDS: Sodium Chloride 0.9% 10 ML Syringe FLUSH PRN ×2 (06:15→06:44)
[2018-10-12] MEDS: ceFAZolin 2 GM in Premix Bag 1 BAG IV SCH (06:15)
[2018-10-12 07:57] VITALS: BP 114/71; PULSE 80
[2018-10-12] MEDS: APIXABAN 5 MG PO SCH (08:33)
[2018-10-12] MEDS: Cyanocobalamin (Vitamin B12) 100 MCG Tab PO SCH (08:33)
[2018-10-12] MEDS: Aspirin 81 MG Tab.EC PO SCH (08:34)
[2018-10-12] MEDS: Lisinopril 20 MG Tab PO SCH (08:34)
[2018-10-12] MEDS: Calcium Carbonate/Vitamin D3 1250 MG-200 Unit Tab PO SCH (08:35)
[2018-10-12] MEDS: Multivitamins, Therapeutic with Minerals Tab PO SCH (08:35)
[2018-10-12] MEDS: Pregabalin 75 MG Cap PO SCH (08:36)
--- NOTE | 2018-10-12 12:30 | PCM.DCSUM1 ---
Discharge Summary - Hospital Course Free Text/Narrative:: The patient is a 58-year-old man with history of hypertension and dyslipidemia chronic plantar ulcer with neuropathy. The patient underwent debridement and synovectomy in June 2018 and recently was diagnosed with T12-L1 discitis with evidence of paraspinal soft tissue enhancement consistent with possible psoas abscess. Patient was septicemic with staphylococcal aureus MSSA. He was treated for 8 weeks with IV antibiotics with weekly telemedicine follow up with the ID clinic. Completed IV cefazolin today OK to discharge home Will follow up with ID clinic in one week. Diagnosis: Stroke: No - Discharge Data Discharge Date: 10/12/18 Discharge Disposition: Home, Self-Care 01 Condition: Good - Patient Summary/Data Consults: Consultations 08/24/18 13:47 OT Evaluation and Treatment [CONS] Routine PT Evaluation and Treatment [CONS] Routine 09/17/18 15:25 Consult to Physician [CONS] Routine - Patient Instructions Diet: Usual Diet as Tolerated Activity: As Tolerated - Discharge Plan Prescriptions/Med Rec: Apixaban [Eliquis] 5 mg PO BID 30 Days #60 tablet Home Medications: Home Meds Pantoprazole [ProTONIX] 40 mg PO DAILY 12/26/14 [History] Pregabalin [Lyrica] 300 cap PO BID 12/26/14 [History] Aspirin [Halfprin] 81 mg PO DAILY 07/09/18 [History] Acetaminophen 500 mg PO Q4HR PRN 08/24/18 [History] Calcium Carbonate/Vitamin D3 [Calcium 500 + Vit D Caplet] 1 tab PO BID 08/24/18 [History] Cyanocobalamin (Vitamin B-12) [Vitamin B-12] 50 mcg PO DAILY 08/24/18 [History] Hydrochlorothiazide [Microzide] 12.5 mg PO DAILY 08/24/18 [History] Lisinopril 40 mg PO DAILY 08/24/18 [History] Multivits,Ca,Min/Iron/FA/Lycop [Centrum Men's Tablet] 1 tab PO DAILY 08/24/18 [ History] Non-Formulary Medication [NF Drug] 75 mg PO DAILY 08/24/18 [History] Sennosides/Docusate Sodium [Senna-S] 2 tab PO BID 08/24/18 [History] amLODIPine [Norvasc] 5 mg PO DAILY 08/24/18 [History] oxyCODONE 5 mg PO Q4HR PRN 08/24/18 [History] Magnesium 250 mg PO DAILY 08/28/18 [History] Apixaban [Eliquis] 5 mg PO BID 30 Days #60 tablet 10/12/18 [Rx] Patient Handouts: Bone and Joint Infections, Adult, Apixaban oral tablets - Discharge Summary/Plan Comment DC Time >30 min.: Yes - Patient Data Vitals - Most Recent: Last Vital Signs Temp 36.5 C 10/12/18 07:56 Pulse 80 10/12/18 07:56 Resp 20 10/12/18 07:56 BP 114/71 10/12/18 08:34 Pulse Ox 98 10/12/18 07:56 Weight - Most Recent: 127.641 kg I&O - Last 24 hours: Intake & Output 10/11/18 10/12/18 10/12/18 22:59 06:59 14:59 Intake Total 50 50 465 Balance 50 50 465 Lab Results - Last 24 hrs: Laboratory Results - last 24 hr 10/12/18 10/12/18 10/12/18 Range/Units 06:04 06:04 06:04 WBC 4.6 L (5.0-10.0) 10^3/uL RBC 4.17 L (4.6-6.2) 10^6/uL Hgb 12.7 L (14.0-18.0) g/dL Hct 37.9 L (40.0-54.0) % MCV 90.9 (80-100) fL MCH 30.5 (27.0-34.0) pg MCHC 33.5 (33.0-35.0) g/dL Plt Count 135 L (150-450) 10^3/uL Neut % (Auto) 38.8 L (42.2-75.2) % Lymph % (Auto) 43.5 (20.5-50.1) % Long % (Auto) 14.5 H (2-8) % Eos % (Auto) 2.6 (1.0-3.0) % Baso % (Auto) 0.6 (0.0-1.0) % ESR 4 (0-15) mm/hr Creatinine 0.8 (0.6-1.3) mg/dL Est Cr Clr Drug Dosing 114.17 mL/min Estimated GFR (MDRD) > 60 ALT 8 L (10-60) IU/L C-Reactive Protein 2.3 H (0.0-1.3) mg/dL Med Orders - Current: Current Medications Acetaminophen (Tylenol Extra Strength) 500 mg PO Q4HR PRN PRN Reason: Pain (mild 1-3) Last Admin: 09/11/18 00:42 Dose: 500 mg Aspirin (Halfprin) 81 mg PO DAILY [facility] Last Admin: 10/12/18 08:34 Dose: 81 mg Calcium Carbonate (Calcium Carbonate/Vitamin D 1250 Mg-200 Unit) 1 tab PO BID [facility] Last Admin: 10/12/18 08:35 Dose: 1 tab Cyanocobalamin (Vitamin B12) 50 mcg PO DAILY [facility] Last Admin: 10/12/18 08:33 Dose: 50 mcg Docusate Sodium (Colace) 100 mg PO BID PRN PRN Reason: Constipation Last Admin: 09/16/18 09:21 Dose: 100 mg Lisinopril (Prinivil) 20 mg PO DAILY [facility] Last Admin: 10/12/18 08:34 Dose: 20 mg Magnesium Hydroxide (Milk Of Magnesia) 30 ml PO Q12H PRN PRN Reason: Constipation Methyl Salicylate (Icy Hot Cream) 1 gm TOP QID PRN PRN Reason: Pain (mild 1-3) Last Admin: 09/18/18 14:36 Dose: 1 applic Multivitamins/Minerals (Vitamins And Minerals) 1 tab PO DAILY [facility] Last Admin: 10/12/18 08:35 Dose: 1 tab Apixaban [Eliquis] 5 Mg- Non-Formulary Medication 5 mg PO 0800,1400 [facility] Last Admin: 10/12/18 08:33 Dose: 5 mg Ondansetron HCl (Zofran Odt) 4 mg PO Q4H PRN PRN Reason: nausea, able to take PO Oxycodone HCl (Oxycodone) 5 mg PO Q4HR PRN PRN Reason: Pain (moderate 4-6) Last Admin: 09/27/18 22:15 Dose: 5 mg Pantoprazole Sodium (Protonix) 40 mg PO ACBRK [facility] Last Admin: 10/12/18 06:14 Dose: 40 mg Polyethylene Glycol (Miralax) 17 gm PO DAILY PRN PRN Reason: Constipation Pregabalin (Lyrica) 300 mg PO BID [facility] Last Admin: 10/12/18 08:36 Dose: 300 mg Sodium Chloride (Saline Flush) 10 ml FLUSH ASDIRECTED PRN PRN Reason: Keep Vein Open Last Admin: 10/12/18 06:44 Dose: 10 ml Zolpidem Tartrate (Ambien) 5 mg PO BEDTIME PRN PRN Reason: Insomnia Last Admin: 09/27/18 23:43 Dose: 5 mg Discontinued Medications Amlodipine Besylate (Norvasc) 5 mg PO DAILY [facility] Last Admin: 09/16/18 09:23 Dose: 5 mg Calcium Carbonate (Calcium Carbonate/Vitamin D 1250 Mg-200 Unit) 1 tab PO BID [facility] Last Admin: 09/19/18 10:12 Dose: Not Given Furosemide (Lasix) 20 mg PO ONETIME ONE Stop: 09/16/18 06:28 Last Admin: 09/16/18 09:22 Dose: 20 mg Furosemide (Lasix) 20 mg IVPUSH ONETIME ONE Stop: 09/16/18 15:33 Last Admin: 09/16/18 16:08 Dose: 20 mg Furosemide (Lasix) 40 mg IVPUSH ONETIME ONE Stop: 09/26/18 09:01 Last Admin: 09/26/18 08:40 Dose: 40 mg Hydrochlorothiazide (Hydrochlorothiazide) 12.5 mg PO DAILY [facility] Last Admin: 09/16/18 09:22 Dose: 12.5 mg Hydrochlorothiazide (Hydrochlorothiazide) 25 mg PO DAILY [facility] Last Admin: 09/22/18 09:01 Dose: 25 mg Cefazolin Sodium/Dextrose 2 gm (/ Premix) 50 mls @ 100 mls/hr IV Q8HR [facility] Stop: 10/12/18 14:01 Last Admin: 09/14/18 14:22 Dose: Not Given Nafcillin Sodium 12 gm/ Sodium (Chloride) 250 mls @ 10.417 mls/hr IV Q24H [facility] Stop: 09/17/18 14:59 Last Admin: 09/16/18 15:46 Dose: 10.417 mls/hr Nafcillin Sodium 12 gm/ (Dextrose/Water) 250 mls @ 10.417 mls/hr IV Q24H [facility] Stop: 10/12/18 14:59 Last Admin: 09/24/18 16:12 Dose: 10.4 mls/hr Cefazolin Sodium/Dextrose 2 gm (/ Premix) 50 mls @ 100 mls/hr IV Q8H [facility] Last Admin: 10/01/18 13:14 Dose: 100 mls/hr Cefazolin Sodium/Dextrose 2 gm (/ Premix) 50 mls @ 100 mls/hr IV Q8H [facility] Last Infusion: 10/12/18 06:45 Dose: Infused Lisinopril (Prinivil) 40 mg PO DAILY [facility] Last Admin: 09/21/18 08:57 Dose: 40 mg Lisinopril (Prinivil) 20 mg PO DAILY [facility] Last Admin: 09/22/18 09:03 Dose: 20 mg Lisinopril (Prinivil) 10 mg PO DAILY [facility] Last Admin: 09/27/18 08:50 Dose: 10 mg Lisinopril (Prinivil) 10 mg PO ONETIME ONE Stop: 09/27/18 12:34 Last Admin: 09/27/18 13:01 Dose: 10 mg Morphine Sulfate (Morphine) 2 mg IVPUSH Q2H PRN PRN Reason: Pain (severe 7-10) Last Admin: 09/14/18 06:14 Dose: 2 mg Non-Formulary Medication (Nf Drug) each PO DAILY [facility] Oxycodone HCl (Oxycodone) 5 mg PO .STK-MED ONE Stop: 08/30/18 05:42 Pantoprazole Sodium (Protonix) 40 mg PO .STK-MED ONE Stop: 08/30/18 04:40 Senna/Docusate Sodium (Senna Plus) 2 tab PO BID [facility] Last Admin: 10/01/18 09:04 Dose: Not Given
== END 2018-10-12 13:45 | disposition home or self-care (01) | DRG 552 ==
LOC: UNDOADMIN 13:08 → DL.MS 13:08 → EEVIPCON 13:47 → DL.MS 13:47
PROVIDERS: ADMIT Internal Medicine; ATTEND Hospitalist
DX: M46.45 Discitis, unspecified, thoracolumbar region (principal); M86.9 Osteomyelitis, unspecified; E78.5 Hyperlipidemia, unspecified; I10 Essential (primary) hypertension; K21.9 Gastro-esophageal reflux disease without esophagitis; G62.9 Polyneuropathy, unspecified; E66.9 Obesity, unspecified; Z79.01 Long term (current) use of anticoagulants; Z87.891 Personal history of nicotine dependence; Z88.1 Allergy status to other antibiotic agents; Z86.718 Personal history of other venous thrombosis and embolism; Z68.36 Body mass index [BMI] 36.0-36.9, adult
CPT/HCPCS: 36415; 80048; 80053; 80076; 82565; 83880; 84460; 85025; 85027; 85651; 86140; 97162-GP; 97165-GO; A4217; A9270-GY; J0690; J1940; J2270; J7050; J7060; S0032

== ENCOUNTER 2019-01-16 18:20 | Emergency (ER) | payer MEDICARE, MEDICAID ==
[2019-01-16] MEDS ORDERED: Ketorolac 30 MG/ML SDV IVPUSH ONE (19:51)
[2019-01-16] MEDS ORDERED: Clindamycin Phosphate 900 MG in Sodium Chloride 0.9% 100 ML IV ONE (19:51)
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
[2019-01-16] MEDS ORDERED: Sodium Chloride 0.9% 1,000 ML IV SCH (20:00)
[2019-01-16 20:35] LABS: ANION GAP 14.6
[2019-01-16 21:03] VITALS: BP 91/60; PULSE 76
== END 2019-01-16 21:13 | disposition home or self-care (01) ==
LOC: DL.ED 18:20
DX: L97.519 Non-pressure chronic ulcer of other part of right foot with unspecified severity (principal); I10 Essential (primary) hypertension; K21.9 Gastro-esophageal reflux disease without esophagitis; Z88.1 Allergy status to other antibiotic agents; Z88.8 Allergy status to other drugs, medicaments and biological substances; Z79.82 Long term (current) use of aspirin; Z79.899 Other long term (current) drug therapy
CPT/HCPCS: 36415; 73620; 80053; 83605; 85025; 87040; 96365; 96375; 99284; J1885; J3490; J7030; J7050

== ENCOUNTER 2019-02-24 10:38 | Emergency (ER) | payer MEDICARE, MEDICAID ==
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
[2019-02-24] MEDS: Morphine 2 MG/ML Syringe IVPUSH ONE (11:46)
[2019-02-24] MEDS: Sodium Chloride 0.9% 10 ML Syringe FLUSH PRN (11:56)
[2019-02-24 11:59] LABS: ANION GAP 11.9; CHLORIDE,CL 105 mmol/L (101-111); SODIUM,NA 136 mmol/L (135-145)
--- NOTE | 2019-02-24 12:32 | CR ---
EXAMINATION: Foot Comp Min 3V Lt SEX: Male AGE: 58 years CLINICAL HISTORY: 58-year-old male "swollen great toe" left foot (dropped 40# on foot). INTERPRETATION: ABNORMAL. Osteolytic destructive base of the proximal phalanx great toe extending through the first MTP joint and involving the head of the first metatarsal. This has the appearance of chronic severe infection i.e. SEPTIC JOINT AND OSTEOMYELITIS. (Unusual differential consideration would include a neoplasm) Needle like foreign body base of the great toe. No subcutaneous air. No sign of acute left foot fracture or joint dislocation. Orthopedic hardware consistent with old ankle fracture.
--- NOTE | 2019-02-24 12:35 | CR ---
EXAMINATION: Ankle Min 3V Lt SEX: Male AGE: 58 years CLINICAL HISTORY: dropped 40# on foot, swollen great toe, wound. Severe osteolytic destructive changes great toe. INTERPRETATION: 1. Bimalleolar soft tissue swelling. 2. Orthopedic hardware consistent with "reduction and fixation old fracture. 3. No sign of acute left ankle fracture or disruption of the tibiotalar mortise joint symmetry. 4. Ankle joint effusion. Tiny heel spur at insertion plantar aponeurosis at the base of the os calcis.
[2019-02-24] MEDS: Sodium Chloride 0.9% 1,000 ML IV ONE (13:09)
[2019-02-24 13:43] VITALS: BP 88/55; PULSE 72
== END 2019-02-24 13:38 ==
LOC: DL.ED 10:38
DX: M86.9 Osteomyelitis, unspecified (principal); K21.9 Gastro-esophageal reflux disease without esophagitis; Z79.899 Other long term (current) drug therapy; Z88.1 Allergy status to other antibiotic agents; Z79.82 Long term (current) use of aspirin; Z88.8 Allergy status to other drugs, medicaments and biological substances
CPT/HCPCS: 36415; 73610-RT; 73630-RT; 80053; 83605; 85025; 87040; 96374; 99285-25; J2270; J7030

== ENCOUNTER 2019-05-07 10:43 | Emergency (ER) | payer MEDICARE, MEDICAID ==
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
[2019-05-07 10:54] VITALS: BP 120/79; PULSE 79
== END 2019-05-07 11:20 | disposition home or self-care (01) ==
LOC: DL.ED 10:43
DX: Z53.21 Procedure and treatment not carried out due to patient leaving prior to being seen by health care provider (principal)

== ENCOUNTER 2019-06-02 17:07 | Emergency (ER) | payer MEDICARE, MEDICAID ==
[2019-06-02 17:20] VITALS: BP 106/65; PULSE 80
[2019-06-02] MEDS ORDERED: Sodium Chloride 0.9% 10 ML Syringe FLUSH PRN (17:23)
[2019-06-02] MEDS ORDERED: HYDROmorphone 1 MG/ML Syringe IVPUSH ONE ×2 (17:23→18:35)
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
== END 2019-06-02 18:44 ==
LOC: DL.ED 17:07
DX: L97.519 Non-pressure chronic ulcer of other part of right foot with unspecified severity (principal); I10 Essential (primary) hypertension; K21.9 Gastro-esophageal reflux disease without esophagitis; Z88.8 Allergy status to other drugs, medicaments and biological substances; Z88.1 Allergy status to other antibiotic agents; Z79.899 Other long term (current) drug therapy; Z79.82 Long term (current) use of aspirin; Z79.01 Long term (current) use of anticoagulants; Z86.718 Personal history of other venous thrombosis and embolism; Z87.891 Personal history of nicotine dependence
CPT/HCPCS: 96374; 96376; 99284; J1170

== ENCOUNTER 2019-07-25 18:23 | Emergency (ER) | payer MEDICARE, MEDICAID, OTHER ==
[2019-07-25 18:16] VITALS: BP 147/86; PULSE 98
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
[2019-07-25 19:00] LABS: ANION GAP 14.9 mEq/L (7-13); CHLORIDE,CL 97 mmol/L (98-107); SODIUM,NA 134 mmol/L (136-145)
[2019-07-25] MEDS ORDERED: Acetaminophen/HYDROcodone 325-10 MG Tab PO ONE (19:01)
== END 2019-07-25 19:35 | disposition home or self-care (01) ==
LOC: DL.ED 18:23
DX: G89.18 Other acute postprocedural pain (principal); M79.671 Pain in right foot; I10 Essential (primary) hypertension; Z88.8 Allergy status to other drugs, medicaments and biological substances; Z88.1 Allergy status to other antibiotic agents
CPT/HCPCS: 36415; 80053; 83605; 85025; 86140; 87040; 87804; 99283; A9270

== ENCOUNTER 2019-08-09 20:54 | Emergency (ER) | payer MEDICARE, MEDICAID ==
[2019-08-09 21:08] VITALS: BP 95/65; PULSE 59
[2019-08-09] MEDS ORDERED: HYDROmorphone 1 MG/ML Syringe IVPUSH ONE (21:16)
[2019-08-09] MEDS ORDERED: Ondansetron 4 MG/2 ML SDV IVPUSH ONE (21:16)
[2019-08-09] MEDS ORDERED: Famotidine 20 MG/2 ML SDV IVPUSH ONE (21:16)
[2019-08-09] MEDS ORDERED: Sodium Chloride 0.9% 1,000 ML IV ONE (21:18)
[2019-08-09 22:23] LABS: ANION GAP 18.7 mEq/L (7-13); CHLORIDE,CL 102 mmol/L (98-107); SODIUM,NA 139 mmol/L (136-145)
[2019-08-09] MEDS ORDERED: Iopamidol 612 MG/ML 100 ML Bottle IVPUSH ONE (22:32)
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
== END 2019-08-10 00:21 | disposition home or self-care (01) ==
LOC: DL.ED 20:54
DX: K52.9 Noninfective gastroenteritis and colitis, unspecified (principal); K21.9 Gastro-esophageal reflux disease without esophagitis; Z79.899 Other long term (current) drug therapy; I10 Essential (primary) hypertension; G62.9 Polyneuropathy, unspecified; Z88.1 Allergy status to other antibiotic agents; Z79.82 Long term (current) use of aspirin; Z79.01 Long term (current) use of anticoagulants; Z86.718 Personal history of other venous thrombosis and embolism
CPT/HCPCS: 36415; 74177; 80053; 82150; 83605; 83690; 85025; 85610; 87040; 96361; 96374; 96375; 99283; 99285; J1170; J2405; J3490; J7030; Q9967

== ENCOUNTER 2021-01-26 12:14 | Emergency (ER) | payer MEDICARE, MEDICAID, OTHER ==
[2021-01-26 12:47] VITALS: PULSE 72
--- NOTE | 2021-01-26 13:16 | CR ---
EXAMINATION: Foot 2V Rt SEX: Male AGE: 60 years CLINICAL HISTORY: 60-year-old male with right foot pain (history osteomyelitis and amputation). Interpretation: Abnormal. 1. Amputation proximal metatarsals right forefoot since comparison exam 24 February 2019. 2. Tiny bone fragment mid stump. 3. Isolated small collections of air anteromedially (superiorly) and anterolateral that could represent infection but may also be trapped in skin fold i.e. artifact. 4. No underlying inflammatory periostitis or focal osteolytic destructive changes of the remaining proximal metatarsal or bones of the midfoot. 5. Evidence of previous orthopedic correction right ankle fracture (plate and multiple screws). CONCLUSION: Forefoot amputation. Apparent soft tissue infection but no obvious underlying bone involvement.
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
[2021-01-26 13:36] LABS: ANION GAP 9.8 mEq/L (7-13); CHLORIDE,CL 103 mmol/L (98-107); SODIUM,NA 136 mmol/L (136-145)
[2021-01-26] MEDS ORDERED: Acetaminophen/HYDROcodone 325-10 MG Tab PO ONE (14:16)
[2021-01-26 15:36] VITALS: BP 121/77
== END 2021-01-26 15:15 | disposition home or self-care (01) ==
LOC: DL.ED 12:14
DX: L97.512 Non-pressure chronic ulcer of other part of right foot with fat layer exposed (principal); L08.9 Local infection of the skin and subcutaneous tissue, unspecified; I10 Essential (primary) hypertension; K21.9 Gastro-esophageal reflux disease without esophagitis; Z88.6 Allergy status to analgesic agent; Z88.1 Allergy status to other antibiotic agents; Z79.01 Long term (current) use of anticoagulants; Z79.82 Long term (current) use of aspirin; Z79.899 Other long term (current) drug therapy
CPT/HCPCS: 36415; 73620; 80053; 83605; 85025; 86140; 87040; 87070; 87077; 87186; 99283; A9270

== ENCOUNTER 2022-03-05 04:09 | Emergency (ER) | payer MEDICARE, MEDICAID ==
[2022-03-05] MEDS ORDERED: Ondansetron 4 MG/2 ML SDV IVPUSH ONE (04:17)
[2022-03-05] MEDS ORDERED: fentaNYL 100 MCG/2 ML SDV IVPUSH ONE (04:17)
[2022-03-05 04:19] VITALS: BP 115/77; PULSE 88
[2022-03-05] MEDS ORDERED: Piperacillin/Tazobactam 3.375 GM in Sodium Chloride 0.9% 100 ML IV ONE (04:51)
[2022-03-05] MEDS ORDERED: HYDROmorphone 0.5 MG/0.5 ML Syringe IVPUSH ONE (04:53)
[2022-03-05] MEDS ORDERED: Acetaminophen 325 MG Tab PO ONE (05:03)
[2022-03-05] MEDS ORDERED: Ibuprofen 400 MG Tab PO ONE (05:05)
[2022-03-05 05:09] LABS: ANION GAP 12.3 mEq/L (7-13)
[2022-03-05] MEDS ORDERED: Enoxaparin 100 MG/1 ML Syringe SUBCUT ONE (06:33)
[2022-03-05] MEDS ORDERED: Ibuprofen 400 MG Tab ONE (07:34)
== END 2022-03-05 09:11 | disposition home or self-care (01) ==
LOC: DL.ED 04:09
DX: L03.115 Cellulitis of right lower limb (principal); K21.9 Gastro-esophageal reflux disease without esophagitis; Z88.8 Allergy status to other drugs, medicaments and biological substances; Z88.1 Allergy status to other antibiotic agents; Z79.899 Other long term (current) drug therapy; Z79.82 Long term (current) use of aspirin
CPT/HCPCS: 36415; 73610; 73630; 80053; 80307; 82150; 83605; 83690; 83735; 84550; 85025; 85379; 85610; 86140; 87040; 93971; 96365; 96372; 96375; 99284; A9270; J1170; J1650; J2405; J2543; J3010

== ENCOUNTER 2023-07-28 23:11 | Emergency (ER) | payer MEDICARE, MEDICAID, OTHER ==
[2023-07-29 01:11] VITALS: BP 134/96; PULSE 69
[2023-07-29] MEDS: Pregabalin 75 MG Cap PO ONE (01:43)
[2023-07-29] MEDS: Take Home: traMADol 50 MG, 4 Tab Pack PO ONE (01:43)
== END 2023-07-29 01:55 | disposition home or self-care (01) ==
LOC: DL.ED 23:11
DX: L03.115 Cellulitis of right lower limb (principal); T84.7XXA Infection and inflammatory reaction due to other internal orthopedic prosthetic devices, implants and grafts, initial encounter; I10 Essential (primary) hypertension; K21.9 Gastro-esophageal reflux disease without esophagitis; Z88.1 Allergy status to other antibiotic agents; Z88.8 Allergy status to other drugs, medicaments and biological substances; Z79.899 Other long term (current) drug therapy; Z79.82 Long term (current) use of aspirin
CPT/HCPCS: 73590; 73610; 99283; A9270

== ENCOUNTER 2024-11-17 16:54 | Emergency (ER) | payer MEDICAID, MEDICARE ==
[2024-11-17] MEDS ORDERED: Sodium Chloride 0.9% 10 ML Syringe FLUSH PRN (17:26)
[2024-11-17 17:51] LABS: BASOPHILS PERCENT AUTO 0.2 % (0.0-1.0); EOSINOPHILS PERCENT AUTO 0.2 % (1.0-3.0); LYMPHOCYTES PERCENT AUTO 10.9 % (20.5-50.1); MONOCYTES PERCENT AUTO 8.2 % (2-8); NEUTROPHILS PERCENT AUTO 80.5 % (42.2-75.2); PLATELET COUNT,PLT 155 10^3/uL (150-450); RED BLOOD CELL COUNT 4.48 10^6/uL (4.6-6.2); WHITE BLOOD CELL COUNT,WBC 13.1 10^3/uL (5.0-10.0)
[2024-11-17 18:09] LABS: ALANINE AMINOTRANSFERASE,ALT 33.0 U/L (16-63); ASPARTATE AMNIOTRANSFERASE,AST 23.0 U/L (15-37); BILIRUBIN TOTAL 1.5 mg/dL (0.2-1.0); BLOOD UREA NITROGEN,BUN 12.0 mg/dL (7-18); CARBON DIOXIDE,CO2 28.0 mmol/L (21-32); CHLORIDE,CL 103.0 mmol/L (98-107); CREATININE 1.24 mg/dL (0.70-1.30); EST CRCL DRUG DOSING (CG) 66.23 mL/min; GLUCOSE RANDOM 122.0 mg/dL (70-99); POTASSIUM,K 3.6 mmol/L (3.5-5.1); PROTEIN TOTAL,TP 7.0 g/dL (6.4-8.2); SODIUM,NA 138.0 mmol/L (136-145)
[2024-11-17 18:10] LABS: A/G RATIO 0.75; ESTIMATED GFR 64.0 mL/min (>=60)
[2024-11-17] MEDS: Iopamidol 612 MG/ML 100 ML Bottle IVPUSH ONE (18:12)
[2024-11-17] MEDS: fentaNYL 100 MCG/2 ML SDV IVPUSH ONE (19:02)
[2024-11-17] MEDS: Ketorolac 30 MG/ML SDV IVPUSH ONE (19:49)
[2024-11-17 20:11] VITALS: BP 110/69; PULSE 73
== END 2024-11-17 20:24 | disposition home or self-care (01) ==
LOC: DL.ED 16:54 → EEVIPCON 16:54 → DL.ED 20:24
DX: L03.115 Cellulitis of right lower limb (principal); I10 Essential (primary) hypertension; K21.9 Gastro-esophageal reflux disease without esophagitis; Z79.899 Other long term (current) drug therapy; Z79.82 Long term (current) use of aspirin; Z88.8 Allergy status to other drugs, medicaments and biological substances
CPT/HCPCS: 36415; 73701; 80053; 83036; 83605; 83735; 85025; 86140; 96361; 96374; 96375; 99283; J0878; J1885; J2270; J7030; Q9967